=== PATIENT | male | born 1970 | race Two or more races ===

== ENCOUNTER 2017-09-13 13:57 | Inpatient (IN) | payer OTHER ==
--- NOTE | 2017-09-13 13:33 | HP ---
CIWA Score - CIWA Score Nausea/Vomitin-Mild Nausea/No Vomiting Muscle Tremors: 4-Moderate,w/Arms Extend Anxiety: 4-Mod. Anxious/Guarded Agitation: 1-Slight > Activity Paroxysmal Sweats: 1-Minimal Palms Moist Orientation: 1-Uncertain about Date Tacttile Disturbances: 1-Very Mild Itch/Numbness Auditory Disturbances: 1-Very Mild Visual Disturbances: 1-Very Mild Sensitivity Headache: 1-Very Mild CIWA-Ar Total Score: 16 Admission ROS BHS - HPI Chief Complaint: I want to get clean, I can't afford it anymore, I want my life back Allergies/Adverse Reactions: Allergies Allergy/AdvReac Type Severity Reaction Status Date / Time No Known Allergies Allergy Verified 09/13/17 14:12 History of Present Illness: 47 yo gentleman here for detox from alcohol and alprazolam. Patient is also on [facility] methadone program in the [place] ([phone]) - was dosed today but lost take home bottle for tomorrow on the bus coming here. Denies seizures but does have black outs. Last time here or any detox was August 2015. Exam Limitations: Clinical Condition - Ebola screening Have you traveled outside of the country in the last 21 days: No Have you had contact with anyone from an Ebola affected area: No Have you been sick,other than usual withdrawal symptoms: No Do you have a fever: No - Review of Systems Constitutional: Loss of Appetite, Changes in sleep, Weakness EENT: reports: Blurred Vision, Nose Congestion Respiratory: reports: No Symptoms reported GI: reports: Nausea, Poor Appetite : reports: Frequency Musculoskeletal: reports: Back Pain, Muscle Pain Integumentary: reports: No Symptoms Reported Neuro: reports: Headache Endocrine: reports: No Symptoms Reported Hematology: reports: No Symptoms Reported Psychiatric: reports: Judgement Intact, Mood/Affect Appropiate Other Systems: Reviewed and Negative Patient History - Patient Medical History Hx Anemia: No Hx Asthma: No Hx Chronic Obstructive Pulmonary Disease (COPD): No Hx Cancer: No Hx Cardiac Disorders: No Hx Congestive Heart Failure: No Hx Hypertension: No Hx Hypercholesterolemia: No Hx Pacemaker: No HX Cerebrovascular Accident: No Hx Seizures: No Hx Dementia: No Hx Diabetes: No Hx Gastrointestinal Disorders: No Hx Liver Disease: No Hx Genitourinary Disorders: No Hx Sexually Transmitted Disorders: No Hx Renal Disease (ESRD): No Hx Thyroid Disease: No Hx Human Immunodeficiency Virus (HIV): No Hx Hepatitis C: Yes (diagnosed last yr 2012 - not treated) Hx Depression: No Hx Suicide Attempt: Yes (18 years ago) Hx Bipolar Disorder: No Hx Schizophrenia: Yes (on meds) - Patient Surgical History Past Surgical History: No Hx Neurologic Surgery: No Hx Cataract Extraction: No Hx Cardiac Surgery: No Hx Lung Surgery: No Hx Breast Surgery: No Hx Breast Biopsy: No Hx Abdominal Surgery: No Hx Appendectomy: No Hx Cholecystectomy: No Hx Genitourinary Surgery: No Hx Section: No Hx Orthopedic Surgery: No Other Surgical History: partial amputation left 2nd toe by great toe Anesthesia Reaction: No - PPD History Previous Implant?: Yes Documented Results: Negative w/proof Date: 08/02/15 Results: 0 mm PPD to be Administered?: Yes - Reproductive History Patient is a Female of Child Bearing Age (11 -55 yrs old): No - Smoking Cessation Smoking history: Current every day smoker Have you smoked in the past 12 months: Yes Aproximately how many cigarettes per day: 20 Cigars Per Day: 0 Hx Chewing Tobacco Use: No Initiated information on smoking cessation: Yes 'Breaking Loose' booklet given: 09/13/17 - Substance & Tx. History Hx Alcohol Use: Yes Hx Substance Use: Yes Substance Use Type: Alcohol, Cocaine, Heroin, Marijuana, Tranquilizers Hx Substance Use Treatment: Yes (detox, rehab, methadone) - Substances Abused Alcohol Route: Oral Frequency: Daily Amount used: 2 pints liquor Age of first use: 12 Date of Last Use: 09/12/17 Alprazolam (Xanax) Route: Oral Frequency: Daily Amount used: 5mg Age of first use: 16 Date of Last Use: 09/12/17 Heroin Route: Injection Frequency: 1-2 times per week Amount used: 2 bags Age of first use: 12 Date of Last Use: 09/10/17 Marijuana/Hashish Route: Smoking Frequency: 1-2 times per week Amount used: 1 joint Age of first use: 12 Date of Last Use: 09/08/17 Cocaine Route: Injection Frequency: Daily Amount used: $70 Age of first use: 16 Date of Last Use: 09/12/17 Family Disease History - Family Disease History Family Disease History: Other: Father ( - heroin), Mother ( after operation ), Brother (1 brother - healthy), Sister (3 sisters - healthy) Admission Physical Exam [facility] - Vital Signs Vital Signs: 115/72 P 64 R 18 T 97.7 - Physical General Appearance: Yes: Nourished, Appropriately Dressed, Mild Distress, Thin HEENTM: Yes: Hearing grossly Normal, Normal ENT Inspection, Normocephalic, Normal Voice, Pharynx Normal, Muffled/Hoarse Voice Respiratory: Yes: Normal Breath Sounds, No Respiratory Distress Neck: Yes: No masses,lesions,Nodules Breast: Yes: Breast Exam Deferred Cardiology: Yes: Regular Rhythm, Regular Rate Abdominal: Yes: Flat Genitourinary: Yes: Dysuria Back: Yes: Normal Inspection Musculoskeletal: Yes: full range of Motion, Gait Steady Extremities: Yes: Normal Range of Motion Neurological: Yes: Alert, Normal Mood/Affect, Normal Response Integumentary: Yes: Normal Color, Warm, Track Álvarez (left arm, no erythema) - Diagnostic (1) Alcohol dependence Current Visit: Yes Status: Chronic (2) Sedative, hypnotic or anxiolytic dependence with withdrawal, uncomplicated Current Visit: Yes Status: Chronic (3) Cannabis abuse Current Visit: Yes Status: Chronic (4) Cocaine dependence Current Visit: Yes Status: Chronic Qualifiers: Substance use status: uncomplicated Qualified Code(s): F14.20 - Cocaine dependence, uncomplicated (5) Hepatitis C Current Visit: No Status: Chronic Qualifiers: Viral hepatitis chronicity: chronic Hepatic coma status: without hepatic coma Qualified Code(s): B18.2 - Chronic viral hepatitis C (6) Nicotine dependence Current Visit: No Status: Chronic Qualifiers: Nicotine product type: cigarettes Substance use status: unspecified nicotine-induced disorder Qualified Code(s): F17.219 - Nicotine dependence, cigarettes, with unspecified nicotine-induced disorders (7) Opioid dependence Current Visit: No Status: Chronic Qualifiers: Substance use status: uncomplicated Qualified Code(s): F11.20 - Opioid dependence, uncomplicated (8) Methadone maintenance therapy patient Current Visit: No Status: Acute Comment: [facility] [address] [place], [place] [address] [phone] - states 120mg, dosed today Cleared for Admission S - Detox or Rehab S Level of Care: Medically Managed Detox Regimen/Protocol: Librium BHS Breath Alcohol Content Breath Alcohol Content: 0
[2017-09-13 14:03] VITALS: BMI 22.6
[2017-09-13] MEDS ORDERED: MAG HYDROX/AL HYDROX/SIMETH 30 ML UNIT-DOSE CUP PO PRN (14:20)
[2017-09-13] MEDS ORDERED: chlordiazePOXIDE HCL 25 MG CAPSULE PO PRN (14:20)
[2017-09-13] MEDS ORDERED: guaiFENesin/D-METHORPHAN HB 10 ML UNIT-DOSE CUPS PO PRN (14:20)
[2017-09-13] MEDS ORDERED: MAGNESIUM HYDROX 2400MG/30ML ORAL SUSPENSION 30 ML CUP PO PRN (14:20)
[2017-09-13] MEDS ORDERED: ACETAMINOPHEN 325 MG TABLET (FP) PO PRN (14:20)
[2017-09-13] MEDS ORDERED: LOPERAMIDE HCL 2 MG CAPSULE PO PRN (14:20)
[2017-09-13] MEDS ORDERED: MAGNESIUM CITRATE 300 ML BOTTLE PO PRN (14:20)
[2017-09-13] MEDS ORDERED: P-EPHED 60MG/TRIPROLIDI 2.5MG TABLET PO PRN (14:20)
[2017-09-13] MEDS ORDERED: MENTHOL/PHENOL 1 EACH UD MM PRN (14:20)
[2017-09-13] MEDS ORDERED: hydrOXYzine PAMOATE 25 MG CAPSULE (FP) PO PRN (14:20)
[2017-09-13] MEDS ORDERED: chlordiazePOXIDE HCL 25 MG CAPSULE PO ONE (16:00)
[2017-09-13] MEDS: NICOTINE 21 MG/24 HOURS TOPICAL PATCH TD SCH (17:41)
[2017-09-13] MEDS: chlordiazePOXIDE HCL 25 MG CAPSULE PO SCH ×2 (18:06→23:22)
[2017-09-13] MEDS: THIAMINE HCL 100 MG TABLET (FP) PO SCH (23:22)
[2017-09-14 00:24] LABS: URINE APPEARANCE CLEAR; URINE BILIRUBIN NEGATIVE (NEGATIVE); URINE BLOOD NEGATIVE (NEGATIVE); URINE COLOR LTYELLOW; URINE GLUCOSE (UA) NEGATIVE (NEGATIVE); URINE KETONE NEGATIVE (NEGATIVE); URINE LEUK ESTERASE NEGATIVE (NEGATIVE); URINE NITRITE NEGATIVE (NEGATIVE); URINE PROTEIN NEGATIVE (NEGATIVE); URINE UROBILINOGEN NEGATIVE mg/dL (0.2-1.0)
[2017-09-14] MEDS: chlordiazePOXIDE HCL 25 MG CAPSULE PO SCH ×4 (06:00→23:03)
[2017-09-14 10:18] LABS: ALBUMIN 3.1 g/dl (3.4-5.0); ALK PHOS 109 U/L (45-117); ANION GAP 8 (8-16); BILIRUBIN,TOTAL 0.7 mg/dL (0.2-1.0); CALCIUM 8.2 mg/dL (8.5-10.1); CO2 28 mmol/L (21-32); CREATININE 0.7 mg/dL (0.7-1.3); GLUCOSE,RANDOM 96 mg/dL (74-106); SGOT/AST 29 U/L (15-37); SGPT/ALT 43 U/L (12-78); TOT PROT 6.8 g/dl (6.4-8.2)
[2017-09-14 10:20] LABS: MCH 30.9 pg (25.7-33.7); MCHC 33.4 g/dl (32.0-35.9); MEAN CELL VOLUME 92.4 fl (80-96); MEAN PLT VOLUME 8.9 fl (7.5-11.1); PLATELET COUNT 179 K/MM3 (134-434); RDW 13.7 % (11.9-15.9)
[2017-09-14] MEDS: PRENATAL VITAMINS W/ FOLIC ACID TABLET (FP) PO SCH (11:04)
[2017-09-14] MEDS: NICOTINE 21 MG/24 HOURS TOPICAL PATCH TD SCH (11:10)
--- NOTE | 2017-09-14 12:46 | PN ---
[facility] CIWA - CIWA Score Nausea/Vomitin-No Nausea/No Vomiting Muscle Tremors: 3 Anxiety: 3 Agitation: 3 Paroxysmal Sweats: 1-Minimal Palms Moist Orientation: 0-Oriented Tacttile Disturbances: 0-None Auditory Disturbances: 0-None Visual Disturbances: 0-None Headache: 0-None Present CIWA-Ar Total Score: 10 S Progress Note (SOAP) Subjective: tremor anxiety agitation Objective: 09/14/17 12:47 Vital Signs Temperature 97 F L 09/14/17 10:32 Pulse Rate 72 09/14/17 10:32 Respiratory Rate 18 09/14/17 10:32 Blood Pressure 125/88 09/14/17 10:32 O2 Sat by Pulse Oximetry (%) Laboratory Last Values WBC 9.0 K/mm3 (4.0-10.0) 09/14/17 08:00 RBC 4.06 M/mm3 (4.00-5.60) 09/14/17 08:00 Hgb 12.5 GM/dL (11.7-16.9) 09/14/17 08:00 Hct 37.5 % (35.4-49) 09/14/17 08:00 MCV 92.4 fl (80-96) 09/14/17 08:00 MCH 30.9 pg (25.7-33.7) 09/14/17 08:00 MCHC 33.4 g/dl (32.0-35.9) 09/14/17 08:00 RDW 13.7 % (11.9-15.9) 09/14/17 08:00 Plt Count 179 K/MM3 (134-434) D 09/14/17 08:00 MPV 8.9 fl (7.5-11.1) 09/14/17 08:00 Sodium 141 mmol/L (136-145) 09/14/17 08:00 Potassium 3.6 mmol/L (3.5-5.1) D 09/14/17 08:00 Chloride 105 mmol/L (98-107) 09/14/17 08:00 Carbon Dioxide 28 mmol/L (21-32) 09/14/17 08:00 Anion Gap 8 (8-16) 09/14/17 08:00 BUN 7 mg/dL (7-18) D 09/14/17 08:00 Creatinine 0.7 mg/dL (0.7-1.3) 09/14/17 08:00 Creat Clearance w eGFR > 60 (>60) 09/14/17 08:00 Random Glucose 96 mg/dL (74-106) 09/14/17 08:00 Calcium 8.2 mg/dL (8.5-10.1) L 09/14/17 08:00 Total Bilirubin 0.7 mg/dL (0.2-1.0) D 09/14/17 08:00 AST 29 U/L (15-37) D 09/14/17 08:00 ALT 43 U/L (12-78) D 09/14/17 08:00 Alkaline Phosphatase 109 U/L (45-117) D 09/14/17 08:00 Total Protein 6.8 g/dl (6.4-8.2) 09/14/17 08:00 Albumin 3.1 g/dl (3.4-5.0) L 09/14/17 08:00 Urine Color Ltyellow 09/13/17 14:30 Urine Appearance Clear 09/13/17 14:30 Urine pH 6.0 (5.0-8.0) 09/13/17 14:30 Ur Specific [place] 1.004 (1.001-1.035) 09/13/17 14:30 Urine Protein Negative (NEGATIVE) 09/13/17 14:30 Urine Glucose (UA) Negative (NEGATIVE) 09/13/17 14:30 Urine Ketones Negative (NEGATIVE) 09/13/17 14:30 Urine Blood Negative (NEGATIVE) 09/13/17 14:30 Urine Nitrite Negative (NEGATIVE) 09/13/17 14:30 Urine Bilirubin Negative (NEGATIVE) 09/13/17 14:30 Urine Urobilinogen Negative mg/dL (0.2-1.0) 09/13/17 14:30 RPR Titer Nonreactive (NONREACTIVE) 09/14/17 08:00 lab noted Assessment: 09/14/17 12:47 withdrawal sx Plan: continue detox
[2017-09-14 13:07] LABS: URINE LEUK ESTERASE NEGATIVE (NEGATIVE)
--- NOTE | 2017-09-14 14:01 | CONSULT ---
[facility] Psychiatric Consult - Data Date of interview: 09/14/17 Admission source: Self-referred Identifying data: Mr Mendez is a 47 years old single male, unemployed on SSI, homeless Substance Abuse History: Reports history of alcohol, cocaine and xanax use. Refer to addiction counselor's note for further information Medical History: Significant for history of Hep C since 2012 and a history of orthosurgery for partial amputation of second toe of left foot. Smokes cigarettes 1ppd Psychiatric History: Reports history of Paranoid Schizophrenia since age 9 and has had multiple previous psychiatric hospitalizations at [facility] and most recently [facility] [place] 6 months ago for . Reports non- compliance with psychiatric outpatient services but get Risperdal 2 mg po BID, Zoloft 100 mg po daily and Seroquel 50 mg po HS prescribed by his primary care physician. At present, reports not feeling well since he lost his methadone. Also sleeps poorly Physical/Sexual Abuse/Trauma History: Denies history of sexual, physical, verbal abuse. Mental Status Exam - Mental Status Exam Alert and Oriented to: Time, Place, Person Cognitive Function: Fair Patient Appearance: Well Groomed Mood: Depressed, Anxious Affect: Appropriate Patient Behavior: Cooperative Speech Pattern: Clear Voice Loudness: Normal Thought Process: Intact, Goal Oriented Thought Disorder: Not Present Hallucinations: Denies Suicidal Ideation: Denies Homicidal Ideation: Denies Insight/Judgement: Poor Sleep: Poorly Appetite: Good Muscle strength/Tone: Normal Gait/Station: Normal Psychiatric Findings - Problem List ([place] 1, 2,3) (1) Paranoid schizophrenia Current Visit: No Status: Chronic (2) Substance induced mood disorder Current Visit: Yes Status: Acute (3) Substance-induced sleep disorder Current Visit: Yes Status: Acute (4) Alcohol dependence with uncomplicated withdrawal Current Visit: Yes Status: Acute (5) Cocaine dependence Current Visit: Yes Status: Chronic Qualifiers: Substance use status: uncomplicated Qualified Code(s): F14.20 - Cocaine dependence, uncomplicated (6) Sedative, hypnotic or anxiolytic dependence with withdrawal, uncomplicated Current Visit: Yes Status: Chronic (7) Opioid dependence on agonist therapy Current Visit: Yes Status: Chronic (8) Nicotine dependence Current Visit: No Status: Chronic Qualifiers: Nicotine product type: cigarettes Substance use status: unspecified nicotine-induced disorder Qualified Code(s): F17.219 - Nicotine dependence, cigarettes, with unspecified nicotine-induced disorders (9) Hepatitis C Current Visit: No Status: Chronic Qualifiers: Viral hepatitis chronicity: chronic Hepatic coma status: without hepatic coma Qualified Code(s): B18.2 - Chronic viral hepatitis C - Initial Treatment Plan Initial Treatment Plan: 1) Continue Zoloft 100 mg po daily, Risperdal 2 mg po BID and Seroquel 50 mg po HS. 2) Continue inpatient detoxification
--- NOTE | 2017-09-14 16:44 | CONSULT ---
S Psychiatric Consult - Data Date of interview: 09/14/17 Admission source: Self-referred
[2017-09-14] MEDS: SERTRALINE HCL 50 MG TABLET (FP) PO SCH (18:34)
[2017-09-14] MEDS: risperiDONE 2 MG TABLET PO SCH (23:02)
[2017-09-14] MEDS: THIAMINE HCL 100 MG TABLET (FP) PO SCH (23:02)
[2017-09-14] MEDS: QUEtiapine FUMARATE 50 MG TABLET PO SCH (23:03)
[2017-09-14] MEDS: IBUPROFEN 400 MG TABLET (FP) PO PRN (23:06)
[2017-09-15] MEDS: chlordiazePOXIDE HCL 25 MG CAPSULE PO SCH ×2 (06:46→11:02)
[2017-09-15] MEDS ORDERED: METHADONE HCL 40 MG DISPERSABLE TABLET PO ONE (09:18)
[2017-09-15] MEDS: PRENATAL VITAMINS W/ FOLIC ACID TABLET (FP) PO SCH (11:01)
[2017-09-15] MEDS: risperiDONE 2 MG TABLET PO SCH ×2 (11:01→22:32)
[2017-09-15] MEDS: SERTRALINE HCL 50 MG TABLET (FP) PO SCH (11:01)
[2017-09-15] MEDS: NICOTINE 21 MG/24 HOURS TOPICAL PATCH TD SCH (11:02)
--- NOTE | 2017-09-15 11:59 | PN ---
S CIWA - CIWA Score Nausea/Vomitin-No Nausea/No Vomiting Muscle Tremors: 4-Moderate,w/Arms Extend Anxiety: 3 Agitation: 3 Paroxysmal Sweats: 3 Orientation: 0-Oriented Tacttile Disturbances: 0-None Auditory Disturbances: 0-None Visual Disturbances: 0-None Headache: 0-None Present CIWA-Ar Total Score: 13 S Progress Note (SOAP) Subjective: agitation anxiety sweats shakes interrupted sleep Objective: 09/15/17 11:59 Vital Signs Temperature 98.2 F 09/15/17 10:00 Pulse Rate 92 H 09/15/17 10:00 Respiratory Rate 20 09/15/17 10:00 Blood Pressure 105/69 09/15/17 10:00 O2 Sat by Pulse Oximetry (%) Laboratory Tests 09/13/17 09/14/17 09/14/17 14:30 08:00 08:00 WBC 9.0 RBC 4.06 Hgb 12.5 Hct 37.5 MCV 92.4 MCH 30.9 MCHC 33.4 RDW 13.7 Plt Count 179 D MPV 8.9 Sodium 141 Potassium 3.6 D Chloride 105 Carbon Dioxide 28 Anion Gap 8 BUN 7 D Creatinine 0.7 Creat Clearance w eGFR > 60 Random Glucose 96 Calcium 8.2 L Total Bilirubin 0.7 D AST 29 D ALT 43 D Alkaline Phosphatase 109 D Total Protein 6.8 Albumin 3.1 L Urine Color Ltyellow Urine Appearance Clear Urine pH 6.0 Ur Specific [place] 1.004 Urine Protein Negative Urine Glucose (UA) Negative Urine Ketones Negative Urine Blood Negative Urine Nitrite Negative Urine Bilirubin Negative Urine Urobilinogen Negative Ur Leukocyte Esterase Negative RPR Titer 09/14/17 08:00 WBC RBC Hgb Hct MCV MCH MCHC RDW Plt Count MPV Sodium Potassium Chloride Carbon Dioxide Anion Gap BUN Creatinine Creat Clearance w eGFR Random Glucose Calcium Total Bilirubin AST ALT Alkaline Phosphatase Total Protein Albumin Urine Color Urine Appearance Urine pH Ur Specific [place] Urine Protein Urine Glucose (UA) Urine Ketones Urine Blood Urine Nitrite Urine Bilirubin Urine Urobilinogen Ur Leukocyte Esterase RPR Titer Nonreactive aaox3 ambulating no acute distress Assessment: 09/15/17 12:00 withdrawal sx Plan: continue detox increase fluids
--- NOTE | 2017-09-15 15:15 | EKG ---
Test Reason : Blood Pressure : / mmHG Vent. Rate : 054 BPM Atrial Rate : 054 BPM P-R Int : 158 ms QRS Dur : 096 ms QT Int : 432 ms P-R-T Axes : 026 043 036 degrees QTc Int : 409 ms SINUS BRADYCARDIA OTHERWISE NORMAL ECG NO PREVIOUS ECGS AVAILABLE Confirmed by ORALIA DEJESUS MD ([id number]) on 09/15/2017 3:15:24 PM Referred By: Confirmed By:ORALIA DEJESUS MD
[2017-09-15] MEDS: chlordiazePOXIDE 5 MG CAPSULE PO SCH ×2 (17:35→22:31)
[2017-09-15] MEDS: QUEtiapine FUMARATE 50 MG TABLET PO SCH (22:32)
[2017-09-15] MEDS: THIAMINE HCL 100 MG TABLET (FP) PO SCH (22:32)
[2017-09-16] MEDS: chlordiazePOXIDE 5 MG CAPSULE PO SCH ×2 (06:14→11:09)
[2017-09-16] MEDS: METHADONE HCL 40 MG DISPERSABLE TABLET PO SCH (06:15)
[2017-09-16] MEDS: SERTRALINE HCL 50 MG TABLET (FP) PO SCH (11:08)
[2017-09-16] MEDS: NICOTINE 21 MG/24 HOURS TOPICAL PATCH TD SCH (11:08)
[2017-09-16] MEDS: risperiDONE 2 MG TABLET PO SCH ×2 (11:09→22:23)
[2017-09-16] MEDS: PRENATAL VITAMINS W/ FOLIC ACID TABLET (FP) PO SCH (11:09)
--- NOTE | 2017-09-16 11:57 | PN ---
BHS Progress Note (SOAP) Subjective: open cut/blister to amputee toe interrupted sleep anxiety Objective: 09/16/17 11:56 Vital Signs Temperature 97.3 F L 09/16/17 09:56 Pulse Rate 93 H 09/16/17 09:56 Respiratory Rate 18 09/16/17 09:56 Blood Pressure 117/64 09/16/17 09:56 O2 Sat by Pulse Oximetry (%) aaox3 ambulating no acute distress cracked/dry foot and amputee toe noted Assessment: 09/16/17 11:57 withdrawal sx Plan: continue detox increase fluids bacitracin oint tinactin cream d/c in am
[2017-09-16] MEDS ORDERED: BACITRACIN 0.9 GM PACKET TP SCH (12:00)
[2017-09-16] MEDS: TOLNAFTATE 1% CREAM 15 GM TUBE TP SCH ×2 (15:32→22:23)
[2017-09-16] MEDS: IBUPROFEN 400 MG TABLET (FP) PO PRN (15:40)
[2017-09-16] MEDS: chlordiazePOXIDE HCL 10 MG CAPSULE PO SCH ×2 (17:44→22:23)
[2017-09-16] MEDS: THIAMINE HCL 100 MG TABLET (FP) PO SCH (22:23)
[2017-09-16] MEDS: QUEtiapine FUMARATE 50 MG TABLET PO SCH (22:23)
[2017-09-17] MEDS: METHADONE HCL 40 MG DISPERSABLE TABLET PO SCH (06:28)
[2017-09-17] MEDS: chlordiazePOXIDE HCL 10 MG CAPSULE PO SCH (06:28)
--- NOTE | 2017-09-17 08:55 | DS ---
[facility] Detox Discharge Summary Admission Date: 09/13/17 Discharge Date: 09/17/17 - History Present History: Alcohol Dependence, Cannabis Dependence, Cocaine Dependence, MMTP - Physical Exam Results Vital Signs: Vital Signs Temperature 96.6 F L 09/17/17 07:06 Pulse Rate 79 09/17/17 07:06 Respiratory Rate 20 09/17/17 07:06 Blood Pressure 105/71 09/17/17 07:06 O2 Sat by Pulse Oximetry (%) - Treatment Hospital Course: Detox Protocol Followed, Detoxed Safely, Responded well, Discharged Condition Good - Medication Discharge Medications: Ambulatory Orders Risperidone [Risperdal -] 2 mg PO BID #60 tablet 03/22/15 Sertraline HCl [Zoloft -] 100 mg PO DAILY #30 tablet 03/22/15 Sertraline HCl [Zoloft -] 100 mg PO DAILY #30 tablet 08/30/15 Trazodone HCl [Desyrel -] 50 mg PO HS #30 tablet 08/30/15 - Diagnosis (1) Alcohol dependence Current Visit: Yes Status: Chronic Qualifiers: Substance use status: uncomplicated Qualified Code(s): F10.20 - Alcohol dependence, uncomplicated (2) Cannabis abuse Current Visit: Yes Status: Chronic (3) Cocaine dependence Current Visit: Yes Status: Chronic Qualifiers: Substance use status: uncomplicated Qualified Code(s): F14.20 - Cocaine dependence, uncomplicated (4) Opioid dependence on agonist therapy Current Visit: Yes Status: Chronic (5) Hepatitis C Current Visit: No Status: Chronic Qualifiers: Viral hepatitis chronicity: chronic Hepatic coma status: without hepatic coma Qualified Code(s): B18.2 - Chronic viral hepatitis C (6) Nicotine dependence Current Visit: No Status: Chronic Qualifiers: Nicotine product type: cigarettes Substance use status: unspecified nicotine-induced disorder Qualified Code(s): F17.219 - Nicotine dependence, cigarettes, with unspecified nicotine-induced disorders (7) Alcohol dependence with uncomplicated withdrawal Current Visit: Yes Status: Acute (8) Sedative, hypnotic or anxiolytic dependence with withdrawal, uncomplicated Current Visit: Yes Status: Chronic
[2017-09-17] MEDS: SERTRALINE HCL 50 MG TABLET (FP) PO SCH (09:50)
[2017-09-17] MEDS: risperiDONE 2 MG TABLET PO SCH (09:50)
[2017-09-17] MEDS: PRENATAL VITAMINS W/ FOLIC ACID TABLET (FP) PO SCH (09:50)
[2017-09-17 09:57] VITALS: BP 129/72; PULSE 74; TEMP 97.7
== END 2017-09-17 10:10 | disposition home or self-care (01) | DRG 773 ==
LOC: YASAS 13:57 → Y6N 15:40
PROVIDERS: ADMIT Internal Medicine; ATTEND Internal Medicine
PROC: HZ2ZZZZ Detoxification Services for Substance Abuse Treatment (ICD-10-PCS; principal; 2017-09-13)
DX: F11.20 Opioid dependence, uncomplicated (principal); F13.230 Sedative, hypnotic or anxiolytic dependence with withdrawal, uncomplicated; F10.230 Alcohol dependence with withdrawal, uncomplicated; F14.20 Cocaine dependence, uncomplicated; F12.10 Cannabis abuse, uncomplicated; F17.210 Nicotine dependence, cigarettes, uncomplicated; F19.24 Other psychoactive substance dependence with psychoactive substance-induced mood disorder; F19.282 Other psychoactive substance dependence with psychoactive substance-induced sleep disorder; F20.0 Paranoid schizophrenia; B18.2 Chronic viral hepatitis C; Z91.5 Personal history of self-harm
CPT/HCPCS: 36415; 80053; 81003; 85027; 86593; 93005; 93010

== ENCOUNTER 2018-10-12 10:53 | Inpatient (IN) | payer OTHER ==
[2018-10-12 11:05] VITALS: BMI 28.6
--- NOTE | 2018-10-12 13:57 | HP ---
COWS - Scale Resting Pulse: 1= [place] 81-100 Sweatin= Chills/Flushing Restless Observation: 3= Extraneous Movement Pupil Size: 1= Pupils >than Normal Bone or Joint Aches: 2= Severe Diffuse Aches Runny Nose/ Eye Tearin= Runny Nose/Eyes GI Upset > 30mins: 2= Nausea/Diarrhea Tremor Observation: 2= Slight Tremor Visible Yawning Observation: 2= >3x During Session Anxiety or Irritability: 2=Irritable/Anxious Goose Flesh Skin: 0=Smooth Skin COWS Score: 18 CIWA Score Nausea/Vomitin Muscle Tremors: 2 Anxiety: 2 Agitation: 2 Paroxysmal Sweats: 1-Minimal Palms Moist Orientation: 0-Oriented Tacttile Disturbances: 1-Very Mild Itch/Numbness Auditory Disturbances: 1-Very Mild Visual Disturbances: 0-None Headache: 2-Mild CIWA-Ar Total Score: 13 - Admission Criteria [facility] Guidelines: Admission for Medically Managed Detox: Requires at least one of the followin. CIWA greater than 12 2. Seizures within the past 24 hours 3. Delirium tremens within the past 24 hours 4. Hallucinations within the past 24 hours 5. Acute intervention needed for co occurring medical disorder 6. Acute intervention needed for co occurring psychiatric disorder 7. Severe withdrawal that cannot be handled at a lower level of care (continued vomiting, continued diarrhea, abnormal vital signs) requiring intravenous medication and/or fluids 8. Patient presents the following: CIWA greater than 12 Admission Criteria Met: Admission criteria met Admission ROS S - [facility] Chief Complaint: i need help to stop using heroin,alcohol,xanax,cocaine Allergies/Adverse Reactions: Allergies Allergy/AdvReac Type Severity Reaction Status Date / Time No Known Allergies Allergy Verified 10/12/18 12:38 History of Present Illness: this 48 years old male with heroin,alcohol,xanax,cocaine dependence,requested detox,withdrawal symptom,last detox [facility] 09/13/17 to 09/17/17 hypertension no med hepatitis c treated nicotine dependence schizophrenia longest period of sobriety 2 years plan for rehab after detox Exam Limitations: No Limitations - Ebola screening Have you traveled outside of the country in the last 21 days: No Have you had contact with anyone from an Ebola affected area: No Have you been sick,other than usual withdrawal symptoms: No Do you have a fever: No - Review of Systems Constitutional: Chills, Loss of Appetite, Malaise, Night Sweats, Changes in sleep, Weakness, Unintentional Wgt. Loss EENT: reports: Tearing, Nose Congestion Respiratory: reports: No Symptoms reported Cardiac: reports: No Symptoms Reported GI: reports: Diarrhea, Nausea, Vomiting, Abdominal cramping : reports: No Symptoms Reported Musculoskeletal: reports: Back Pain, Joint Pain, Muscle Pain, Joint Stiffness Integumentary: reports: Dryness Neuro: reports: Headache, Tremors Endocrine: reports: No Symptoms Reported Hematology: reports: No Symptoms Reported Psychiatric: reports: No Sypmtoms Reported, Judgement Intact, Mood/Affect Appropiate, Orientated x3, other (schizophrenia) Other Systems: Reviewed and Negative Patient History - Patient Medical History Hx Anemia: No Hx Asthma: No Hx Chronic Obstructive Pulmonary Disease (COPD): No Hx Cancer: No Hx Cardiac Disorders: No Hx Congestive Heart Failure: No Hx Hypertension: No Hx Hypercholesterolemia: No Hx Pacemaker: No HX Cerebrovascular Accident: No Hx Seizures: No Hx Dementia: No Hx Diabetes: No Hx Gastrointestinal Disorders: No Hx Liver Disease: No Hx Genitourinary Disorders: No Hx Sexually Transmitted Disorders: No Hx Renal Disease (ESRD): No Hx Thyroid Disease: No Hx Human Immunodeficiency Virus (HIV): No Hx Hepatitis C: Yes (diagnosed last yr 2012 -reated) Hx Depression: No Hx Suicide Attempt: Yes (18 years ago) Hx Bipolar Disorder: No Hx Schizophrenia: Yes (on meds) Other Medical History: no suicidal,no homicidal - Patient Surgical History Past Surgical History: No Hx Neurologic Surgery: No Hx Cataract Extraction: No Hx Cardiac Surgery: No Hx Lung Surgery: No Hx Breast Surgery: No Hx Breast Biopsy: No Hx Abdominal Surgery: No Hx Appendectomy: No Hx Cholecystectomy: No Hx Genitourinary Surgery: No Hx Section: No Hx Orthopedic Surgery: No Other Surgical History: partial amputation left 2nd toe by great toe Anesthesia Reaction: No - PPD History Previous Implant?: Yes Documented Results: Negative w/o proof Date: 09/15/17 Results: 0 mm PPD to be Administered?: Yes - Smoking Cessation Smoking history: Current every day smoker Have you smoked in the past 12 months: Yes Aproximately how many cigarettes per day: 20 Cigars Per Day: 0 Hx Chewing Tobacco Use: No Initiated information on smoking cessation: Yes 'Breaking Loose' booklet given: 10/12/18 - Substance & Tx. History Hx Alcohol Use: Yes Hx Substance Use: Yes Substance Use Type: Alcohol, Heroin, Tranquilizers Hx Substance Use Treatment: Yes ([facility] 09/13/17 to 09/17/17) - Substances Abused Alcohol Route: Oral Frequency: Daily Amount used: 16 of beer, 1 pint of vodka Age of first use: 16 Date of Last Use: 10/11/18 Heroin Route: Injection Frequency: Daily Amount used: 8-9 bags Age of first use: 16 Date of Last Use: 10/11/18 Xanax Route: Oral Frequency: 3-6 times per week Amount used: 2 2mg tables Age of first use: 37 Date of Last Use: 10/10/18 Family Disease History - Family Disease History Family Disease History: Other: Father ( - heroin), Mother ( after operation ), Brother (1 brother - healthy), Sister (3 sisters - healthy) Admission Physical Exam [facility] - Vital Signs Vital Signs: Vital Signs - 24 hr 10/12/18 11:02 Temperature 97.0 F L Pulse Rate 81 Respiratory 20 Rate Blood Pressure 126/78 - Physical General Appearance: Yes: Moderate Distress, Tremorous, Irritable, Sweating, Anxious HEENTM: Yes: Normal ENT Inspection, CODIE, Pharynx Normal Respiratory: Yes: Lungs Clear, Normal Breath Sounds, No Respiratory Distress Neck: Yes: Within Normal Limits, Supple, Trachea in good position Breast: Yes: Within Normal Limits Cardiology: Yes: Within Normal Limits, Regular Rhythm, Regular Rate, S1, S2 Abdominal: Yes: Within Normal Limits, Normal Bowel Sounds, Non Tender, Flat, Soft Genitourinary: Yes: Within Normal Limits Back: Yes: Muscle Spasm Musculoskeletal: Yes: full range of Motion, Back pain, Muscle Pain Extremities: Yes: Within Normal Limits, Tremors Neurological: Yes: Within Normal Limits, retail pos specialist II-XII NML intact, Fully Oriented, Alert, Motor Strength 5/5 Integumentary: Yes: Dry, Track Álvarez Lymphatic: Yes: Within Normal Limits - Diagnostic (1) Opioid dependence with withdrawal Current Visit: Yes Status: Acute (2) Alcohol dependence with uncomplicated withdrawal Current Visit: No Status: Acute (3) Cocaine dependence Current Visit: No Status: Chronic Qualifiers: Substance use status: uncomplicated Qualified Code(s): F14.20 - Cocaine dependence, uncomplicated (4) Uncomplicated sedative, hypnotic or anxiolytic withdrawal Current Visit: Yes Status: Acute (5) Nicotine dependence Current Visit: Yes Status: Acute (6) Weight loss Current Visit: Yes Status: Acute (7) IVDU (intravenous drug user) Current Visit: Yes Status: Acute (8) Paranoid schizophrenia Current Visit: No Status: Chronic Cleared for Admission S - Detox or Rehab [facility] Level of Care: Medically Managed Detox Regimen/Protocol: Methadone/Librium S Breath Alcohol Content Breath Alcohol Content: 0 Urine Drug Screen - Results Drug Screen Negative: No Urine Drug Screen Results: BRENDEN-Cocaine, OPI-Opiates, FEN-Fentanyl, BUP-Suboxone
[2018-10-12] MEDS ORDERED: MAG HYDROX/AL HYDROX/SIMETH 30 ML UNIT-DOSE CUP PO PRN (14:18)
[2018-10-12] MEDS ORDERED: MENTHOL/PHENOL 1 EACH UD MM PRN (14:18)
[2018-10-12] MEDS ORDERED: MAGNESIUM CITRATE 300 ML BOTTLE PO PRN (14:18)
[2018-10-12] MEDS ORDERED: LOPERAMIDE HCL 2 MG CAPSULE PO PRN (14:18)
[2018-10-12] MEDS ORDERED: guaiFENesin/D-METHORPHAN HB 10 ML UNIT-DOSE CUPS PO PRN (14:18)
[2018-10-12] MEDS ORDERED: P-EPHED 60MG/TRIPROLIDI 2.5MG TABLET PO PRN (14:18)
[2018-10-12] MEDS ORDERED: IBUPROFEN 400 MG TABLET (FP) PO PRN (14:18)
[2018-10-12] MEDS ORDERED: ACETAMINOPHEN 325 MG TABLET (FP) PO PRN (14:18)
[2018-10-12] MEDS ORDERED: MAGNESIUM HYDROX 2400MG/30ML ORAL SUSPENSION 30 ML CUP PO PRN (14:18)
[2018-10-12] MEDS ORDERED: chlordiazePOXIDE HCL 25 MG CAPSULE PO PRN (14:18)
[2018-10-12] MEDS ORDERED: METHADONE HCL 10 MG TABLET (FOR DETOX USE ONLY) PO ONE ×2 (15:45→23:00)
[2018-10-12] MEDS: chlordiazePOXIDE HCL 25 MG CAPSULE PO SCH ×2 (16:51→22:11)
[2018-10-12] MEDS: NICOTINE 21 MG/24 HOURS TOPICAL PATCH TD SCH (16:55)
[2018-10-12] MEDS ORDERED: MELATONIN 5 MG TABLETS PO PRN (22:00)
[2018-10-12] MEDS: THIAMINE HCL 100 MG TABLET (FP) PO SCH (22:11)
[2018-10-13] MEDS: chlordiazePOXIDE HCL 25 MG CAPSULE PO SCH ×4 (05:33→22:03)
[2018-10-13] MEDS ORDERED: METHADONE HCL 10 MG TABLET (FOR DETOX USE ONLY) PO SCH (10:00)
[2018-10-13 10:30] LABS: HEMATOCRIT 41.5 % (35.4-49); HEMOGLOBIN 13.4 GM/dL (11.7-16.9); MCH 28.6 pg (25.7-33.7); MCHC 32.3 g/dl (32.0-35.9); MEAN CELL VOLUME 88.7 fl (80-96); PLATELET COUNT 208 K/MM3 (134-434); RBC 4.68 M/mm3 (4.00-5.60); RDW 14.8 % (11.9-15.9); WHITE BLOOD COUNT 8.4 K/mm3 (4.0-10.0)
[2018-10-13 10:31] LABS: MEAN PLT VOLUME 10.1 fl (7.5-11.1)
[2018-10-13 10:47] LABS: ALBUMIN 3.6 g/dl (3.4-5.0); ALK PHOS 116 U/L (45-117); ANION GAP 8 MMOL/L (8-16); BILIRUBIN,TOTAL 0.4 mg/dL (0.2-1); BLOOD UREA NITROGEN 15 mg/dL (7-18); CALCIUM 8.5 mg/dL (8.5-10.1); CHLORIDE 106 mmol/L (98-107); CO2 25 mmol/L (21-32); CREATININE 0.9 mg/dL (0.55-1.3); GLUCOSE,RANDOM 129 mg/dL (74-106); POTASSIUM 4.3 mmol/L (3.5-5.1); SGOT/AST 53 U/L (15-37); SGPT/ALT 38 U/L (13-61); SODIUM 140 mmol/L (136-145); TOT PROT 7.4 g/dl (6.4-8.2)
[2018-10-13] MEDS: PRENATAL VITAMINS W/ FOLIC ACID TABLET (FP) PO SCH (10:57)
[2018-10-13] MEDS: NICOTINE 21 MG/24 HOURS TOPICAL PATCH TD SCH (11:05)
--- NOTE | 2018-10-13 11:05 | PN ---
[facility] CIWA - CIWA Score Nausea/Vomitin-Mild Nausea/No Vomiting Muscle Tremors: 3 Anxiety: 4-Mod. Anxious/Guarded Agitation: 3 Paroxysmal Sweats: 1-Minimal Palms Moist Orientation: 1-Uncertain about Date Tacttile Disturbances: 1-Very Mild Itch/Numbness Auditory Disturbances: 0-None Visual Disturbances: 0-None Headache: 1-Very Mild CIWA-Ar Total Score: 15 BHS COWS - Scale Resting Pulse: 0= [place] 80 or Below Sweatin= Chills/Flushing Restless Observation: 0= Sits Still Pupil Size: 0= Normal to Room Light Bone or Joint Aches: 2= Severe Diffuse Aches Runny Nose/ Eye Tearin= Nasal Congestion GI Upset > 30mins: 2= Nausea/Diarrhea Tremor Observation of Outstretched Hands: 2= Slight Tremor Visible Yawning Observation: 2= >3x During Session Anxiety or Irritability: 2=Irritable/Anxious Goose Flesh Skin: 0=Smooth Skin COWS Score: 12 S Progress Note (SOAP) Subjective: tremor sweat anxiety restlessness body aches joints pain headaches Objective: 10/13/18 11:04 Vital Signs Temperature 97.4 F L 10/13/18 09:36 Pulse Rate 66 10/13/18 09:36 Respiratory Rate 17 10/13/18 09:36 Blood Pressure 116/70 10/13/18 09:36 O2 Sat by Pulse Oximetry (%) Laboratory Last Values WBC 8.4 K/mm3 (4.0-10.0) 10/13/18 06:00 RBC 4.68 M/mm3 (4.00-5.60) 10/13/18 06:00 Hgb 13.4 GM/dL (11.7-16.9) 10/13/18 06:00 Hct 41.5 % (35.4-49) 10/13/18 06:00 MCV 88.7 fl (80-96) 10/13/18 06:00 MCH 28.6 pg (25.7-33.7) 10/13/18 06:00 MCHC 32.3 g/dl (32.0-35.9) 10/13/18 06:00 RDW 14.8 % (11.9-15.9) 10/13/18 06:00 Plt Count 208 K/MM3 (134-434) 10/13/18 06:00 MPV 10.1 fl (7.5-11.1) D 10/13/18 06:00 Sodium 140 mmol/L (136-145) 10/13/18 06:00 Potassium 4.3 mmol/L (3.5-5.1) 10/13/18 06:00 Chloride 106 mmol/L (98-107) 10/13/18 06:00 Carbon Dioxide 25 mmol/L (21-32) 10/13/18 06:00 Anion Gap 8 MMOL/L (8-16) 10/13/18 06:00 BUN 15 mg/dL (7-18) 10/13/18 06:00 Creatinine 0.9 mg/dL (0.55-1.3) 10/13/18 06:00 Creat Clearance w eGFR > 60 (>60) 10/13/18 06:00 Random Glucose 129 mg/dL (74-106) H 10/13/18 06:00 Calcium 8.5 mg/dL (8.5-10.1) 10/13/18 06:00 Total Bilirubin 0.4 mg/dL (0.2-1) 10/13/18 06:00 AST 53 U/L (15-37) H 10/13/18 06:00 ALT 38 U/L (13-61) 10/13/18 06:00 Alkaline Phosphatase 116 U/L (45-117) 10/13/18 06:00 Total Protein 7.4 g/dl (6.4-8.2) 10/13/18 06:00 Albumin 3.6 g/dl (3.4-5.0) 10/13/18 06:00 lab noted Assessment: 10/13/18 11:05 withdrawal sx Plan: continue detox
--- NOTE | 2018-10-13 14:23 | CONSULT ---
[facility] Psychiatric Consult - Data Date of interview: 10/13/18 Admission source: [facility] Identifying data: Readmission to [facility] for this 48 y/o male undergoing detoxification treatment on [address] (cocaine, heroin, alcohol, xanax) . Patient is single without dependents, homeles, unemployed and supported on SSI benefits. Substance Abuse History: Confirmed by the patient in this interview. Details in current [facility] report : Smoking history: Current every day smoker. Have you smoked in the past 12 months: Yes. Aproximately how many cigarettes per day: 20. Cigars Per Day: 0. Hx Chewing Tobacco Use: No. Initiated information on smoking cessation: Yes. 'Breaking Loose' booklet given: 10/12/18. - Substance & Tx. History. Hx Alcohol Use: Yes. Hx Substance Use: Yes. Substance Use Type : Alcohol, Heroin, Tranquilizers. Hx Substance Use Treatment: [facility] - Substances Abused. Alcohol. Route: Oral. Frequency: Daily. Amount used: 16 of beer, 1 pint of vodka. Age of first use: 16. Date of Last Use: 10/11/18. Heroin. Route: Injection. Frequency: Daily. Amount used: 8-9 bags. Age of first use: 16. Date of Last Use: 10/11/18. Xanax. Route: Oral. Frequency: 3-6 times per week. Amount used: 2 2mg tables. Age of first use: 37. Date of Last Use: 10/10/18 Medical History: Significant for history of Hepatitis C since 2012 and a history of orthosurgery (partial amputation of second toe of left foot). No known allergies. Psychiatric History: Diagnosed with Paranoid Schizophrenia. Onset of psychiatric illness : age 9. Patient endorses a history of multiple psychiatric hospitalizations ([facility], [facility], [facility]). Mr Mendez states that he has been prescribed (in [facility] ) the following medications : sertraline 100 mg/day + seroquel 300 mg/hs + risperdal 2 mg bid. Patient indicates that he was released on 09/16/18. No contact with psychiatrist for aftercare. He presents with a well established history of non-adherence to medications. Denies history of suicide attempts. Physical/Sexual Abuse/Trauma History: Patient denies. Additional Comment: Urine Drug Screen Results: BRENDEN-Cocaine, OPI-Opiates, FEN- Fentanyl, BUP-Suboxone. Noted. Mental Status Exam - Mental Status Exam Alert and Oriented to: Time, Place, Person Cognitive Function: Good Patient Appearance: Well Groomed Mood: Withdrawn, Anxious Affect: Mood Congruent, Constricted Patient Behavior: Fatigued, Cooperative Speech Pattern: Clear Voice Loudness: Normal Thought Process: Goal Oriented Thought Disorder: Not Present Hallucinations: Denies Suicidal Ideation: Denies Homicidal Ideation: Denies Insight/Judgement: Poor Sleep: Poorly, Difficulty falling asleep Appetite: Good Muscle strength/Tone: Normal Gait/Station: Normal Psychiatric Findings - Problem List ([place] 1, 2,3) (1) Alcohol dependence with uncomplicated withdrawal Current Visit: Yes Status: Acute (2) Opioid dependence with withdrawal Current Visit: Yes Status: Acute (3) Uncomplicated sedative, hypnotic or anxiolytic withdrawal Current Visit: Yes Status: Acute (4) Nicotine dependence Current Visit: Yes Status: Chronic (5) Cocaine dependence Current Visit: Yes Status: Chronic Qualifiers: Substance use status: uncomplicated Qualified Code(s): F14.20 - Cocaine dependence, uncomplicated (6) Substance induced mood disorder Current Visit: Yes Status: Chronic (7) Paranoid schizophrenia Current Visit: Yes Status: Chronic - Initial Treatment Plan Initial Treatment Plan: Psychoeducation. Sleep hygiene. Detoxification. Support. Motivational rounds. Medications resumed as : seroquel 100 mg po hs ( reduced but subject to titration) + zoloft 100 mg po daily + risperdal 1 mg po bid. Side effects/benefits of each drug are discussed with the patient (this includes risks of abnormal involuntary movements, dyskinesias, dystonias, galactorrhea, gynecomastia, sexual dysfunction, neuroleptic malignant syndrome, suicidal ideation, metabolic syndrome). Patient is in agreement to this plan of care. Verbal consent granted to MD. Story.
[2018-10-13 15:27] LABS: URINE APPEARANCE TURBID; URINE BILIRUBIN NEGATIVE (<2.0 mg/dL); URINE COLOR AMBER; URINE GLUCOSE (UA) NEGATIVE (NEGATIVE); URINE KETONE NEGATIVE (NEGATIVE); URINE LEUK ESTERASE NEGATIVE (NEGATIVE); URINE NITRITE NEGATIVE (NEGATIVE); URINE PROTEIN NEGATIVE (NEGATIVE); URINE UROBILINOGEN NEGATIVE mg/dL (0.2-1.0)
[2018-10-13] MEDS: QUEtiapine FUMARATE 100 MG TABLET (FP) PO SCH (22:02)
[2018-10-13] MEDS: risperiDONE 1 MG TABLET (FP) PO SCH (22:02)
[2018-10-13] MEDS: THIAMINE HCL 100 MG TABLET (FP) PO SCH (22:03)
[2018-10-14] MEDS: chlordiazePOXIDE HCL 25 MG CAPSULE PO SCH ×2 (05:23→10:33)
[2018-10-14] MEDS: SERTRALINE HCL 50 MG TABLET (FP) PO SCH (10:33)
[2018-10-14] MEDS: NICOTINE 21 MG/24 HOURS TOPICAL PATCH TD SCH (10:33)
[2018-10-14] MEDS: risperiDONE 1 MG TABLET (FP) PO SCH ×2 (10:33→22:07)
[2018-10-14] MEDS: METHADONE HCL 5 MG TABLET (FOR DETOX USE ONLY) PO SCH (10:33)
[2018-10-14] MEDS: PRENATAL VITAMINS W/ FOLIC ACID TABLET (FP) PO SCH (10:33)
--- NOTE | 2018-10-14 10:46 | PN ---
[facility] CIWA - CIWA Score Nausea/Vomitin-Mild Nausea/No Vomiting Muscle Tremors: 3 Anxiety: 4-Mod. Anxious/Guarded Agitation: 2 Paroxysmal Sweats: 1-Minimal Palms Moist Orientation: 0-Oriented Tacttile Disturbances: 0-None Auditory Disturbances: 0-None Visual Disturbances: 0-None Headache: 0-None Present CIWA-Ar Total Score: 11 BHS COWS - Scale Resting Pulse: 0= [place] 80 or Below Sweatin= Chills/Flushing Restless Observation: 0= Sits Still Pupil Size: 0= Normal to Room Light Bone or Joint Aches: 1= Mild Discomfort Runny Nose/ Eye Tearin= Nasal Congestion GI Upset > 30mins: 1= Stomach Cramp Tremor Observation of Outstretched Hands: 2= Slight Tremor Visible Yawning Observation: 1= 1-2x During Session Anxiety or Irritability: 1=Feels Anxious/Irritable Goose Flesh Skin: 0=Smooth Skin COWS Score: 8 S Progress Note (SOAP) Subjective: body aches joints pain muscle cramping tremor sweating anxiety Objective: 10/14/18 10:45 Vital Signs Temperature 96.2 F L 10/14/18 09:16 Pulse Rate 67 10/14/18 09:16 Respiratory Rate 16 10/14/18 09:16 Blood Pressure 108/66 10/14/18 09:16 O2 Sat by Pulse Oximetry (%) Laboratory Last Values WBC 8.4 K/mm3 (4.0-10.0) 10/13/18 06:00 RBC 4.68 M/mm3 (4.00-5.60) 10/13/18 06:00 Hgb 13.4 GM/dL (11.7-16.9) 10/13/18 06:00 Hct 41.5 % (35.4-49) 10/13/18 06:00 MCV 88.7 fl (80-96) 10/13/18 06:00 MCH 28.6 pg (25.7-33.7) 10/13/18 06:00 MCHC 32.3 g/dl (32.0-35.9) 10/13/18 06:00 RDW 14.8 % (11.9-15.9) 10/13/18 06:00 Plt Count 208 K/MM3 (134-434) 10/13/18 06:00 MPV 10.1 fl (7.5-11.1) D 10/13/18 06:00 Sodium 140 mmol/L (136-145) 10/13/18 06:00 Potassium 4.3 mmol/L (3.5-5.1) 10/13/18 06:00 Chloride 106 mmol/L (98-107) 10/13/18 06:00 Carbon Dioxide 25 mmol/L (21-32) 10/13/18 06:00 Anion Gap 8 MMOL/L (8-16) 10/13/18 06:00 BUN 15 mg/dL (7-18) 10/13/18 06:00 Creatinine 0.9 mg/dL (0.55-1.3) 10/13/18 06:00 Creat Clearance w eGFR > 60 (>60) 10/13/18 06:00 Random Glucose 129 mg/dL (74-106) H 10/13/18 06:00 Calcium 8.5 mg/dL (8.5-10.1) 10/13/18 06:00 Total Bilirubin 0.4 mg/dL (0.2-1) 10/13/18 06:00 AST 53 U/L (15-37) H 10/13/18 06:00 ALT 38 U/L (13-61) 10/13/18 06:00 Alkaline Phosphatase 116 U/L (45-117) 10/13/18 06:00 Total Protein 7.4 g/dl (6.4-8.2) 10/13/18 06:00 Albumin 3.6 g/dl (3.4-5.0) 10/13/18 06:00 Urine Color Juli[place] 10/12/18 11:45 Urine Appearance Turbid 10/12/18 11:45 Urine pH 5.0 (5.0-8.0) 10/12/18 11:45 Ur Specific [place] 1.028 (1.010-1.035) 10/12/18 11:45 Urine Protein Negative (NEGATIVE) 10/12/18 11:45 Urine Glucose (UA) Negative (NEGATIVE) 10/12/18 11:45 Urine Ketones Negative (NEGATIVE) 10/12/18 11:45 Urine Blood Negative (NEGATIVE) 10/12/18 11:45 Urine Nitrite Negative (NEGATIVE) 10/12/18 11:45 Urine Bilirubin Negative (<2.0 mg/dL) 10/12/18 11:45 Urine Urobilinogen Negative mg/dL (0.2-1.0) 10/12/18 11:45 Ur Leukocyte Esterase Negative (NEGATIVE) 10/12/18 11:45 RPR Titer Nonreactive (NONREACTIVE) 10/13/18 06:00 lab noted Assessment: 10/14/18 10:45 withdrawal sx Plan: continue detox
[2018-10-14] MEDS: chlordiazePOXIDE 5 MG CAPSULE PO SCH ×2 (17:00→22:07)
[2018-10-14] MEDS: QUEtiapine FUMARATE 100 MG TABLET (FP) PO SCH (22:07)
[2018-10-14] MEDS: THIAMINE HCL 100 MG TABLET (FP) PO SCH (22:07)
[2018-10-15] MEDS: chlordiazePOXIDE 5 MG CAPSULE PO SCH ×2 (05:40→10:09)
[2018-10-15] MEDS: SERTRALINE HCL 50 MG TABLET (FP) PO SCH (10:06)
[2018-10-15] MEDS: PRENATAL VITAMINS W/ FOLIC ACID TABLET (FP) PO SCH (10:06)
[2018-10-15] MEDS: METHADONE HCL 5 MG TABLET (FOR DETOX USE ONLY) PO SCH (10:07)
[2018-10-15] MEDS: NICOTINE 21 MG/24 HOURS TOPICAL PATCH TD SCH (10:08)
[2018-10-15] MEDS: risperiDONE 1 MG TABLET (FP) PO SCH ×2 (10:08→22:01)
--- NOTE | 2018-10-15 13:49 | PN ---
[facility] Progress Note (SOAP) Subjective: sweating tremor anxiety body aches Objective: 10/15/18 13:48 Vital Signs Temperature 98.9 F 10/15/18 13:24 Pulse Rate 71 10/15/18 13:24 Respiratory Rate 17 10/15/18 13:24 Blood Pressure 124/76 10/15/18 13:24 O2 Sat by Pulse Oximetry (%) Laboratory Last Values WBC 8.4 K/mm3 (4.0-10.0) 10/13/18 06:00 RBC 4.68 M/mm3 (4.00-5.60) 10/13/18 06:00 Hgb 13.4 GM/dL (11.7-16.9) 10/13/18 06:00 Hct 41.5 % (35.4-49) 10/13/18 06:00 MCV 88.7 fl (80-96) 10/13/18 06:00 MCH 28.6 pg (25.7-33.7) 10/13/18 06:00 MCHC 32.3 g/dl (32.0-35.9) 10/13/18 06:00 RDW 14.8 % (11.9-15.9) 10/13/18 06:00 Plt Count 208 K/MM3 (134-434) 10/13/18 06:00 MPV 10.1 fl (7.5-11.1) D 10/13/18 06:00 Sodium 140 mmol/L (136-145) 10/13/18 06:00 Potassium 4.3 mmol/L (3.5-5.1) 10/13/18 06:00 Chloride 106 mmol/L (98-107) 10/13/18 06:00 Carbon Dioxide 25 mmol/L (21-32) 10/13/18 06:00 Anion Gap 8 MMOL/L (8-16) 10/13/18 06:00 BUN 15 mg/dL (7-18) 10/13/18 06:00 Creatinine 0.9 mg/dL (0.55-1.3) 10/13/18 06:00 Creat Clearance w eGFR > 60 (>60) 10/13/18 06:00 Random Glucose 129 mg/dL (74-106) H 10/13/18 06:00 Calcium 8.5 mg/dL (8.5-10.1) 10/13/18 06:00 Total Bilirubin 0.4 mg/dL (0.2-1) 10/13/18 06:00 AST 53 U/L (15-37) H 10/13/18 06:00 ALT 38 U/L (13-61) 10/13/18 06:00 Alkaline Phosphatase 116 U/L (45-117) 10/13/18 06:00 Total Protein 7.4 g/dl (6.4-8.2) 10/13/18 06:00 Albumin 3.6 g/dl (3.4-5.0) 10/13/18 06:00 Urine Color Julieta 10/12/18 11:45 Urine Appearance Turbid 10/12/18 11:45 Urine pH 5.0 (5.0-8.0) 10/12/18 11:45 Ur Specific [place] 1.028 (1.010-1.035) 10/12/18 11:45 Urine Protein Negative (NEGATIVE) 10/12/18 11:45 Urine Glucose (UA) Negative (NEGATIVE) 10/12/18 11:45 Urine Ketones Negative (NEGATIVE) 10/12/18 11:45 Urine Blood Negative (NEGATIVE) 10/12/18 11:45 Urine Nitrite Negative (NEGATIVE) 10/12/18 11:45 Urine Bilirubin Negative (<2.0 mg/dL) 10/12/18 11:45 Urine Urobilinogen Negative mg/dL (0.2-1.0) 10/12/18 11:45 Ur Leukocyte Esterase Negative (NEGATIVE) 10/12/18 11:45 RPR Titer Nonreactive (NONREACTIVE) 10/13/18 06:00 lab noted Assessment: 10/15/18 13:49 withdrawal sx Plan: continue detox
[2018-10-15] MEDS ORDERED: BACLOFEN 10 MG TABLET (FP) PO ONE (14:35)
[2018-10-15] MEDS: chlordiazePOXIDE HCL 10 MG CAPSULE PO SCH ×2 (16:29→22:01)
[2018-10-15] MEDS: THIAMINE HCL 100 MG TABLET (FP) PO SCH (22:01)
[2018-10-15] MEDS: QUEtiapine FUMARATE 100 MG TABLET (FP) PO SCH (22:01)
[2018-10-16] MEDS: chlordiazePOXIDE HCL 10 MG CAPSULE PO SCH (06:23)
[2018-10-16] MEDS: risperiDONE 1 MG TABLET (FP) PO SCH (09:08)
[2018-10-16] MEDS: PRENATAL VITAMINS W/ FOLIC ACID TABLET (FP) PO SCH (09:08)
[2018-10-16] MEDS: SERTRALINE HCL 50 MG TABLET (FP) PO SCH (09:15)
[2018-10-16] MEDS: NICOTINE 21 MG/24 HOURS TOPICAL PATCH TD SCH (09:24)
[2018-10-16 09:38] VITALS: BP 129/79; PULSE 87; TEMP 98.8
--- NOTE | 2018-10-16 09:41 | PN ---
[facility] Progress Note Note: Psychiatric nurse practitioner note: Patient discharged from detox today and was accepted to the rehabilitation program at [facility]. Patient will require a 30 day prescription of his current psychotropic medications. Patient accepted Zoloft 100mg daily + seroquel 100mg HS + Risperdal 1mg BID while in detox. A 30 day prescription of his medications will be electronically sent to patient's pharmacy at [address] [place] [address] pharmacy, [address] [place] [address].
[2018-10-16] MEDS ORDERED: METHADONE HCL 10 MG TABLET (FOR DETOX USE ONLY) PO SCH (10:00)
--- NOTE | 2018-10-16 14:41 | DS ---
[facility] Detox Discharge Summary Admission Date: 10/12/18 Discharge Date: 10/16/18 - History Present History: Alcohol Dependence, Cocaine Dependence, Opioid Dependence, Sedative Dependence Additional Comments: PATIENT GOING TO [facility] ([place], [place]) FOR AFTERCARE. PATIENT WAS DISCHARGED FROM DETOX UNIT IN STABLE MEDICAL CONDITION. Pertinent Past History: History of Hep C (Treated), History of Paranoid Schiozphrenia, Intravenous Drug User, Nicotine Dependence, Weight Loss. - Physical Exam Results Vital Signs: Vital Signs Temperature 98.8 F 10/16/18 09:00 Pulse Rate 87 10/16/18 09:00 Respiratory Rate 10/16/18 09:00 Blood Pressure 129/79 10/16/18 09:00 O2 Sat by Pulse Oximetry (%) Pertinent Admission Physical Exam Findings: WITHDRAWAL SYMPTOMS. Laboratory Tests 10/12/18 10/13/18 10/13/18 11:45 06:00 06:00 WBC 8.4 RBC 4.68 Hgb 13.4 Hct 41.5 MCV 88.7 MCH 28.6 MCHC 32.3 RDW 14.8 Plt Count 208 MPV 10.1 D Sodium 140 Potassium 4.3 Chloride 106 Carbon Dioxide 25 Anion Gap 8 BUN 15 Creatinine 0.9 Creat Clearance w eGFR > 60 Random Glucose 129 H Calcium 8.5 Total Bilirubin 0.4 AST 53 H ALT 38 Alkaline Phosphatase 116 Total Protein 7.4 Albumin 3.6 Urine Color Julieta Urine Appearance Turbid Urine pH 5.0 Ur Specific [place] 1.028 Urine Protein Negative Urine Glucose (UA) Negative Urine Ketones Negative Urine Blood Negative Urine Nitrite Negative Urine Bilirubin Negative Urine Urobilinogen Negative Ur Leukocyte Esterase Negative RPR Titer 10/13/18 06:00 WBC RBC Hgb Hct MCV MCH MCHC RDW Plt Count MPV Sodium Potassium Chloride Carbon Dioxide Anion Gap BUN Creatinine Creat Clearance w eGFR Random Glucose Calcium Total Bilirubin AST ALT Alkaline Phosphatase Total Protein Albumin Urine Color Urine Appearance Urine pH Ur Specific [place] Urine Protein Urine Glucose (UA) Urine Ketones Urine Blood Urine Nitrite Urine Bilirubin Urine Urobilinogen Ur Leukocyte Esterase RPR Titer Nonreactive LABS NOTED. - Treatment Hospital Course: Detox Protocol Followed, Detoxed Safely, Responded well, Discharged Condition Good, Rehab Referral Accepted Patient has Accepted a Rehab Referral to: [facility] ([place], [place]). - Medication Discharge Medications: Ambulatory Orders Risperidone [Risperdal -] 2 mg PO BID #60 tablet 09/17/17 Quetiapine Fumarate [Seroquel -] 300 mg PO HS 10/12/18 Sertraline HCl [Zoloft] 150 mg PO DAILY 10/12/18 Quetiapine Fumarate [Seroquel] 100 mg PO HS #30 tablet 10/16/18 Risperidone [Risperdal -] 1 mg PO BID #60 tablet 10/16/18 Sertraline HCl [Zoloft] 100 mg PO DAILY #30 tablet 10/16/18 - Diagnosis (1) Alcohol dependence with uncomplicated withdrawal Status: Acute (2) IVDU (intravenous drug user) Status: Acute (3) Opioid dependence with withdrawal Status: Acute (4) Weight loss Status: Acute (5) Cocaine dependence Status: Chronic Qualifiers: Substance use status: uncomplicated Qualified Code(s): F14.20 - Cocaine dependence, uncomplicated (6) Nicotine dependence Status: Chronic Qualifiers: Nicotine product type: cigarettes Substance use status: unspecified nicotine-induced disorder Qualified Code(s): F17.219 - Nicotine dependence, cigarettes, with unspecified nicotine-induced disorders (7) Paranoid schizophrenia Status: Chronic (8) Sedative, hypnotic or anxiolytic dependence with withdrawal, uncomplicated Status: Chronic (9) Substance induced mood disorder Status: Chronic - AMA Did Patient Leave Against Medical Advice: No
[2018-10-17] MEDS ORDERED: METHADONE HCL 5 MG TABLET (FOR DETOX USE ONLY) PO SCH (06:00)
== END 2018-10-16 09:40 | disposition home or self-care (01) | DRG 773 ==
LOC: YASAS 10:53 → Y3N 15:38
PROC: HZ2ZZZZ Detoxification Services for Substance Abuse Treatment (ICD-10-PCS; principal; 2018-10-12)
DX: F11.23 Opioid dependence with withdrawal (principal); F10.230 Alcohol dependence with withdrawal, uncomplicated; F13.230 Sedative, hypnotic or anxiolytic dependence with withdrawal, uncomplicated; F14.20 Cocaine dependence, uncomplicated; F17.219 Nicotine dependence, cigarettes, with unspecified nicotine-induced disorders; F20.0 Paranoid schizophrenia; F19.24 Other psychoactive substance dependence with psychoactive substance-induced mood disorder; B18.2 Chronic viral hepatitis C; Z91.5 Personal history of self-harm
CPT/HCPCS: 36415; 80053; 81003; 85027; 86593; J0475; J2794

== ENCOUNTER 2018-11-10 10:27 | Inpatient (IN) | payer OTHER ==
[2018-11-10 11:53] VITALS: BMI 27.4
--- NOTE | 2018-11-10 13:02 | HP ---
COWS - Scale Resting Pulse: 0= IN 80 or Below Sweatin=Flushed/Facial Moisture Restless Observation: 3= Extraneous Movement Pupil Size: 0= Normal to Room Light Bone or Joint Aches: 2= Severe Diffuse Aches Runny Nose/ Eye Tearin= Runny Nose/Eyes GI Upset > 30mins: 1= Stomach Cramp Tremor Observation: 0= None Yawning Observation: 0= None Anxiety or Irritability: 4=Extreme Anxiety Goose Flesh Skin: 0=Smooth Skin COWS Score: 14 CIWA Score Nausea/Vomitin Muscle Tremors: 2 Anxiety: 4-Mod. Anxious/Guarded Agitation: 1-Slight > Activity Paroxysmal Sweats: 3 Orientation: 0-Oriented Tacttile Disturbances: 0-None Auditory Disturbances: 0-None Visual Disturbances: 2-Mild Sensitivity Headache: 2-Mild CIWA-Ar Total Score: 17 - Admission Criteria [facility]ASAS Guidelines: Admission for Medically Managed Detox: Requires at least one of the followin. CIWA greater than 12 2. Seizures within the past 24 hours 3. Delirium tremens within the past 24 hours 4. Hallucinations within the past 24 hours 5. Acute intervention needed for co occurring medical disorder 6. Acute intervention needed for co occurring psychiatric disorder 7. Severe withdrawal that cannot be handled at a lower level of care (continued vomiting, continued diarrhea, abnormal vital signs) requiring intravenous medication and/or fluids 8. Patient presents the following: CIWA greater than 12 Admission Criteria Met: Admission criteria met Admission ROS [facility] Allergies/Adverse Reactions: Allergies Allergy/AdvReac Type Severity Reaction Status Date / Time No Known Allergies Allergy Verified 11/10/18 13:39 History of Present Illness: patient here requesting detox from etoh use , reports 12 beers and 1 pint/day x 3 months, reports tremors , denies blackouts or seizures , + falls while intoxicated , denies injuries , most recently 2 weeks ago . First age of use 16 , prior detox ,at this facility , left AMA . States was at [facility] yesterday , arm checked , given IVF and " some meds " , did not bring d/c paperwork . heroin use : 8 bags /day IVDU in [place] [facility] since age 16 , needles from exchange , denies sharing , + re-using , + abscess , OD x 1 , Narcan at program. cocaine use : 20$ /day ivdu since age 16 methadone : illicit use 40 mg , 2 days ago fentanyl : denies use bup : reports use 2 days ago benzo - denies use tobacco : 1 ppd PMHX : denies PSHx : denies Psych : SAD , depression Meds : see list SHX : [facility], unemployed , finances habit through odd jobs, bottle recycling . denies current legal issues . Exam Limitations: Clinical Condition - Ebola screening Have you traveled outside of the country in the last 21 days: No Have you had contact with anyone from an Ebola affected area: No Have you been sick,other than usual withdrawal symptoms: No Do you have a fever: No - Review of Systems Constitutional: See HPI EENT: reports: Other (denies dysphagia) Respiratory: reports: No Symptoms reported Cardiac: reports: No Symptoms Reported GI: reports: See HPI : reports: No Symptoms Reported Musculoskeletal: reports: Muscle Pain Integumentary: reports: See HPI Neuro: reports: Headache Endocrine: reports: No Symptoms Reported Psychiatric: reports: Orientated x3, Agitated (see HPI), Anxious Patient History - Patient Medical History Hx Anemia: No Hx Asthma: No Hx Chronic Obstructive Pulmonary Disease (COPD): No Hx Cancer: No Hx Cardiac Disorders: No Hx Congestive Heart Failure: No Hx Hypertension: No Hx Hypercholesterolemia: No Hx Pacemaker: No HX Cerebrovascular Accident: No Hx Seizures: No Hx Dementia: No Hx Diabetes: No Hx Gastrointestinal Disorders: No Hx Liver Disease: No Hx Genitourinary Disorders: No Hx Sexually Transmitted Disorders: No Hx Renal Disease (ESRD): No Hx Thyroid Disease: No Hx Human Immunodeficiency Virus (HIV): No Hx Hepatitis C: Yes (diagnosed last yr 2012 -reated) Hx Depression: No Hx Suicide Attempt: Yes (18 years ago) Hx Bipolar Disorder: No Hx Schizophrenia: Yes (on meds) - Patient Surgical History Past Surgical History: No Hx Neurologic Surgery: No Hx Cataract Extraction: No Hx Cardiac Surgery: No Hx Lung Surgery: No Hx Breast Surgery: No Hx Breast Biopsy: No Hx Abdominal Surgery: No Hx Appendectomy: No Hx Cholecystectomy: No Hx Genitourinary Surgery: No Hx Section: No Hx Orthopedic Surgery: No Other Surgical History: partial amputation left 2nd toe by great toe Anesthesia Reaction: No - PPD History Date: 10/14/18 Results: 0 mm - Smoking Cessation Smoking history: Current every day smoker Have you smoked in the past 12 months: Yes Aproximately how many cigarettes per day: 20 Cigars Per Day: 0 Hx Chewing Tobacco Use: No Initiated information on smoking cessation: No - Substances Abused Alcohol Route: Oral Frequency: Daily Amount used: 10-12 CANS OF BEER, 1 PINT VODKA Age of first use: 16 Date of Last Use: 11/09/18 Heroin Route: Injection Frequency: Daily Amount used: 8 BAGS Age of first use: 16 Date of Last Use: 11/09/18 Cocaine Route: Injection Frequency: Daily Amount used: $50 Age of first use: 16 Date of Last Use: 11/09/18 Family Disease History - Family Disease History Family Disease History: Other: Father ( - heroin), Mother ( after operation ), Brother (1 brother - healthy), Sister (3 sisters - healthy) Admission Physical Exam [facility] - Vital Signs Vital Signs: Vital Signs - 24 hr 11/10/18 11:48 Temperature 98.3 F Pulse Rate 77 Respiratory 20 Rate Blood Pressure 111/81 - Physical General Appearance: Yes: Disheveled, Moderate Distress, Anxious HEENTM: Yes: EOMI, Normocephalic, Normal Voice, Other (upper and lower dentures) Respiratory: Yes: Chest Non-Tender, Lungs Clear Neck: Yes: No masses,lesions,Nodules, Trachea in good position Cardiology: Yes: Regular Rhythm, Regular Rate, S1, S2 Abdominal: Yes: Normal Bowel Sounds, Non Tender, Soft Genitourinary: Yes: Within Normal Limits Musculoskeletal: Yes: full range of Motion, Gait Steady Extremities: Yes: Tremors, Erythema (L UE mild , non- tender), Other Neurological: Yes: Motor Strength 5/5 Integumentary: Yes: Track Álvarez ([facility] [facility] antecubital and FA) - Diagnostic (1) Alcohol dependence with uncomplicated withdrawal Current Visit: No Status: Acute (2) Opioid dependence with withdrawal Current Visit: No Status: Acute (3) Cocaine dependence Current Visit: No Status: Chronic Qualifiers: Substance use status: uncomplicated Qualified Code(s): F14.20 - Cocaine dependence, uncomplicated (4) Nicotine dependence Current Visit: No Status: Chronic Qualifiers: Nicotine product type: cigarettes Substance use status: unspecified nicotine-induced disorder Qualified Code(s): F17.219 - Nicotine dependence, cigarettes, with unspecified nicotine-induced disorders [facility] Breath Alcohol Content Breath Alcohol Content: 0 Urine Drug Screen - Results Drug Screen Negative: No Urine Drug Screen Results: BRENDEN-Cocaine, OPI-Opiates, BAR-Barbiturates, BZO- Benzodiazepines, MTD-Methadone, FEN-Fentanyl, BUP-Suboxone
[2018-11-10] MEDS ORDERED: ACETAMINOPHEN 325 MG TABLET (FP) PO PRN (13:09)
[2018-11-10] MEDS ORDERED: chlordiazePOXIDE HCL 25 MG CAPSULE PO PRN (13:09)
[2018-11-10] MEDS ORDERED: guaiFENesin/D-METHORPHAN HB 10 ML UNIT-DOSE CUPS PO PRN (13:09)
[2018-11-10] MEDS ORDERED: P-EPHED 60MG/TRIPROLIDI 2.5MG TABLET PO PRN (13:09)
[2018-11-10] MEDS ORDERED: MAGNESIUM CITRATE 300 ML BOTTLE PO PRN (13:09)
[2018-11-10] MEDS ORDERED: MENTHOL/PHENOL 1 EACH UD MM PRN (13:09)
[2018-11-10] MEDS ORDERED: MAGNESIUM HYDROX 2400MG/30ML ORAL SUSPENSION 30 ML CUP PO PRN (13:09)
[2018-11-10] MEDS ORDERED: MAG HYDROX/AL HYDROX/SIMETH 30 ML UNIT-DOSE CUP PO PRN (13:09)
[2018-11-10] MEDS ORDERED: IBUPROFEN 400 MG TABLET (FP) PO PRN (13:09)
[2018-11-10] MEDS ORDERED: NICOTINE POLACRILEX 2 MG GUM BUC PRN (13:09)
[2018-11-10] MEDS ORDERED: METHADONE HCL 10 MG TABLET (FOR DETOX USE ONLY) PO ONE ×2 (14:30→23:00)
--- NOTE | 2018-11-10 15:37 | CONSULT ---
[facility] Psychiatric Consult - Data Date of interview: 11/10/18 Admission source: [facility] Identifying data: Another admission to [facility] for this 48 y/o male self-referred for detoxification (cocaine, heroin, alcohol, xanax). Patient is single without dependents, undomiciled, unemployed and supported on SSI benefits. Substance Abuse History: Confirmed by the patient in this interview. Details in current [facility] report : Smoking history: Current every day smoker. Have you smoked in the past 12 months: Yes. Aproximately how many cigarettes per day: 20. Cigars Per Day: 0. Hx Chewing Tobacco Use: No. Initiated information on smoking cessation: No. - Substances Abused. Alcohol. Route: Oral. Frequency: Daily. Amount used: 10-12 CANS OF BEER, 1 PINT VODKA. Age of first use: 16. Date of Last Use: 11/09/18. Heroin. Route: Injection. Frequency : Daily. Amount used: 8 BAGS. Age of first use: 16. Date of Last Use: . Cocaine. Route: Injection. Frequency: Daily. Amount used: $50. Age of first use: 16. Date of Last Use: 11/09/18 Medical History: Consistent with hepatitis C (diagnosed in 2012) + history of orthosurgery (partial amputation of second toe of left foot). No known allergies. Psychiatric History: Patient has been diagnosed with Paranoid Schizophrenia. Onset of psychiatric illness : age 9. History of multiple psychiatric hospitalizations ([facility], [facility], [facility], [facility], [facility]). Mr Mendez is known for his chronic non-adherence to his psychotropic medications (sertraline 100 mg/day + seroquel 100 mg/hs + risperdal 2 mg bid). Last prescribed at [facility]. No contact with OPD psychiatric care providers since discharged from [facility]. Patient declares ray uses CPE settings for medications refills. No reported history of suicide attempts. Physical/Sexual Abuse/Trauma History: Patient denies. Additional Comment: Urine Drug Screen Results: BRENDEN-Cocaine, OPI-Opiates, BAR- Barbiturates, BZO-Benzodiazepines, MTD-Methadone, FEN-Fentanyl, BUP-Suboxone. Noted. Mental Status Exam - Mental Status Exam Alert and Oriented to: Time, Place, Person Cognitive Function: Good Patient Appearance: Well Groomed (tattoos painted on right arm/forearm) Mood: Nervous, Withdrawn Affect: Mood Congruent, Constricted Patient Behavior: Sedated (mildy sedated but easily awakened and verbal), Fatigued, Cooperative Speech Pattern: Clear, Appropriate Voice Loudness: Normal Thought Process: Goal Oriented Thought Disorder: Not Present Hallucinations: Denies Suicidal Ideation: Denies Homicidal Ideation: Denies Insight/Judgement: Poor Sleep: Well Appetite: Good Muscle strength/Tone: Normal Gait/Station: Normal (observed as ambulatory upon arrival to the unit) Psychiatric Findings - Problem List ([place] 1, 2,3) (1) Alcohol dependence with uncomplicated withdrawal Current Visit: Yes Status: Acute (2) Opioid dependence with withdrawal Current Visit: Yes Status: Acute (3) Cocaine dependence Current Visit: Yes Status: Chronic Qualifiers: Substance use status: uncomplicated Qualified Code(s): F14.20 - Cocaine dependence, uncomplicated (4) Nicotine dependence Current Visit: Yes Status: Chronic Qualifiers: Nicotine product type: cigarettes Substance use status: unspecified nicotine-induced disorder Qualified Code(s): F17.219 - Nicotine dependence, cigarettes, with unspecified nicotine-induced disorders (5) Substance induced mood disorder Current Visit: Yes Status: Chronic (6) Paranoid schizophrenia Current Visit: No Status: Chronic Comment: Asymptomatic. (7) Non-compliance Current Visit: Yes Status: Chronic Comment: with psychiatric OPD care + medications. (8) Insomnia Current Visit: Yes Status: Chronic - Initial Treatment Plan Initial Treatment Plan: Psychoeducation. Sleep hygiene. Detoxification in progress. Hold risperdal, sertraline and seroquel for now (patient found sedated on admission; hypotensive). Monitor vitals. Will resume these drugs in next 24 hours after re-assessment of mental status. Falls precautions. Observation.
--- NOTE | 2018-11-10 16:01 | EKG ---
Test Reason : Blood Pressure : / mmHG Vent. Rate : 072 BPM Atrial Rate : 072 BPM P-R Int : 150 ms QRS Dur : 100 ms QT Int : 402 ms P-R-T Axes : 036 035 041 degrees QTc Int : 440 ms NORMAL SINUS RHYTHM NORMAL ECG WHEN COMPARED WITH ECG OF 13-SEP-2017 16:59, NO SIGNIFICANT CHANGE WAS FOUND Confirmed by Celso Perez MD ([id number]) on 11/10/2018 4:00:46 PM Referred By: Confirmed By:Celso Perez MD
[2018-11-10] MEDS: chlordiazePOXIDE HCL 25 MG CAPSULE PO SCH ×2 (17:10→22:20)
[2018-11-10] MEDS ORDERED: MELATONIN 5 MG TABLETS PO PRN (22:00)
[2018-11-10] MEDS ORDERED: risperiDONE 2 MG TABLET PO SCH (22:00)
[2018-11-10] MEDS: THIAMINE HCL 100 MG TABLET (FP) PO SCH (22:19)
[2018-11-11] MEDS: chlordiazePOXIDE HCL 25 MG CAPSULE PO SCH ×4 (05:45→22:07)
[2018-11-11] MEDS ORDERED: METHADONE HCL 10 MG TABLET (FOR DETOX USE ONLY) PO SCH (10:00)
[2018-11-11] MEDS ORDERED: PRENATAL VITAMINS W/ FOLIC ACID TABLET (FP) PO SCH (10:00)
[2018-11-11 10:07] LABS: HEMATOCRIT 36.7 % (35.4-49); HEMOGLOBIN 12.9 GM/dL (11.7-16.9); MCHC 35.2 g/dl (32.0-35.9); MEAN CELL VOLUME 88.1 fl (80-96); MEAN PLT VOLUME 9.4 fl (7.5-11.1); PLATELET COUNT 227 K/MM3 (134-434); RBC 4.17 M/mm3 (4.00-5.60); RDW 15.2 % (11.9-15.9); WHITE BLOOD COUNT 6.7 K/mm3 (4.0-10.0)
--- NOTE | 2018-11-11 10:53 | PN ---
[facility] CIWA - CIWA Score Nausea/Vomitin-Mild Nausea/No Vomiting Muscle Tremors: 3 Anxiety: 3 Agitation: 4-Moderately Restless Paroxysmal Sweats: 1-Minimal Palms Moist Orientation: 1-Uncertain about Date Tacttile Disturbances: 0-None Auditory Disturbances: 0-None Visual Disturbances: 0-None Headache: 1-Very Mild CIWA-Ar Total Score: 14 S COWS - Scale Resting Pulse: 0= CT 80 or Below Sweatin= Chills/Flushing Restless Observation: 0= Sits Still Pupil Size: 0= Normal to Room Light Bone or Joint Aches: 2= Severe Diffuse Aches Runny Nose/ Eye Tearin= Nasal Congestion GI Upset > 30mins: 2= Nausea/Diarrhea Tremor Observation of Outstretched Hands: 1= Tremor [place], Not Seen Yawning Observation: 2= >3x During Session Anxiety or Irritability: 1=Feels Anxious/Irritable Goose Flesh Skin: 0=Smooth Skin COWS Score: 10 [facility] Progress Note (SOAP) Subjective: tremor body aches muscle pain trouble sleep at night anxiety sweating Objective: 11/11/18 13:30 Vital Signs Temperature 97.3 F L 11/11/18 09:17 Pulse Rate 81 11/11/18 09:17 Respiratory Rate 17 11/11/18 09:17 Blood Pressure 113/74 11/11/18 09:17 O2 Sat by Pulse Oximetry (%) Laboratory Last Values WBC 6.7 K/mm3 (4.0-10.0) 11/11/18 06:00 RBC 4.17 M/mm3 (4.00-5.60) 11/11/18 06:00 Hgb 12.9 GM/dL (11.7-16.9) 11/11/18 06:00 Hct 36.7 % (35.4-49) 11/11/18 06:00 MCV 88.1 fl (80-96) 11/11/18 06:00 MCH 31.0 pg (25.7-33.7) 11/11/18 06:00 MCHC 35.2 g/dl (32.0-35.9) 11/11/18 06:00 RDW 15.2 % (11.9-15.9) 11/11/18 06:00 Plt Count 227 K/MM3 (134-434) 11/11/18 06:00 MPV 9.4 fl (7.5-11.1) 11/11/18 06:00 Sodium 135 mmol/L (136-145) L 11/11/18 06:00 Potassium 3.9 mmol/L (3.5-5.1) 11/11/18 06:00 Chloride 103 mmol/L (98-107) 11/11/18 06:00 Carbon Dioxide 26 mmol/L (21-32) 11/11/18 06:00 Anion Gap 7 MMOL/L (8-16) L 11/11/18 06:00 BUN 11 mg/dL (7-18) 11/11/18 06:00 Creatinine 0.8 mg/dL (0.55-1.3) 11/11/18 06:00 Creat Clearance w eGFR > 60 (>60) 11/11/18 06:00 Random Glucose 135 mg/dL (74-106) H 11/11/18 06:00 Calcium 8.5 mg/dL (8.5-10.1) 11/11/18 06:00 Total Bilirubin 0.4 mg/dL (0.2-1) 11/11/18 06:00 AST 45 U/L (15-37) H 11/11/18 06:00 ALT 37 U/L (13-61) 11/11/18 06:00 Alkaline Phosphatase 118 U/L (45-117) H 11/11/18 06:00 Total Protein 7.7 g/dl (6.4-8.2) 11/11/18 06:00 Albumin 3.7 g/dl (3.4-5.0) 11/11/18 06:00 lab noted Assessment: 11/11/18 13:31 withdrawal sx Plan: continue detox
[2018-11-11 11:07] LABS: ALBUMIN 3.7 g/dl (3.4-5.0); ALK PHOS 118 U/L (45-117); ANION GAP 7 MMOL/L (8-16); BILIRUBIN,TOTAL 0.4 mg/dL (0.2-1); BLOOD UREA NITROGEN 11 mg/dL (7-18); CALCIUM 8.5 mg/dL (8.5-10.1); CHLORIDE 103 mmol/L (98-107); CO2 26 mmol/L (21-32); CREATININE 0.8 mg/dL (0.55-1.3); GLUCOSE,RANDOM 135 mg/dL (74-106); POTASSIUM 3.9 mmol/L (3.5-5.1); SGOT/AST 45 U/L (15-37); SGPT/ALT 37 U/L (13-61); SODIUM 135 mmol/L (136-145); TOT PROT 7.7 g/dl (6.4-8.2)
[2018-11-11] MEDS: THIAMINE HCL 100 MG TABLET (FP) PO SCH (22:07)
[2018-11-12] MEDS: chlordiazePOXIDE HCL 25 MG CAPSULE PO SCH (05:54)
[2018-11-12 06:24] VITALS: BP 107/60; PULSE 54; TEMP 97.5
[2018-11-12] MEDS ORDERED: METHADONE HCL 5 MG TABLET (FOR DETOX USE ONLY) PO SCH (10:00)
--- NOTE | 2018-11-12 16:14 | DS ---
[facility] Detox Discharge Summary Admission Date: 11/10/18 Discharge Date: 11/12/18 - History Present History: Alcohol Dependence, Opioid Dependence Additional Comments: 48 years old male admitted on 11/10/18 for alcohol and opiate withdrawal stabilization insists to leave the detox unit that he has to save his house and he has some financial issues needed to be resolved patient is alert no acute distress denies suicidal ideation Pertinent Past History: encourage the patient to attend 12 step community self help meeting strong recommend peanut picker narcan kit discuss medication assisted treatment program - Physical Exam Results Vital Signs: Vital Signs Temperature 97.5 F L 11/12/18 06:23 Pulse Rate 54 L 11/12/18 06:23 Respiratory Rate 18 11/12/18 06:23 Blood Pressure 107/60 11/12/18 06:23 O2 Sat by Pulse Oximetry (%) Pertinent Admission Physical Exam Findings: alcohol withdrawal sx Laboratory Last Values WBC 6.7 K/mm3 (4.0-10.0) 11/11/18 06:00 RBC 4.17 M/mm3 (4.00-5.60) 11/11/18 06:00 Hgb 12.9 GM/dL (11.7-16.9) 11/11/18 06:00 Hct 36.7 % (35.4-49) 11/11/18 06:00 MCV 88.1 fl (80-96) 11/11/18 06:00 MCH 31.0 pg (25.7-33.7) 11/11/18 06:00 MCHC 35.2 g/dl (32.0-35.9) 11/11/18 06:00 RDW 15.2 % (11.9-15.9) 11/11/18 06:00 Plt Count 227 K/MM3 (134-434) 11/11/18 06:00 MPV 9.4 fl (7.5-11.1) 11/11/18 06:00 Sodium 135 mmol/L (136-145) L 11/11/18 06:00 Potassium 3.9 mmol/L (3.5-5.1) 11/11/18 06:00 Chloride 103 mmol/L (98-107) 11/11/18 06:00 Carbon Dioxide 26 mmol/L (21-32) 11/11/18 06:00 Anion Gap 7 MMOL/L (8-16) L 11/11/18 06:00 BUN 11 mg/dL (7-18) 11/11/18 06:00 Creatinine 0.8 mg/dL (0.55-1.3) 11/11/18 06:00 Creat Clearance w eGFR > 60 (>60) 11/11/18 06:00 Random Glucose 135 mg/dL (74-106) H 11/11/18 06:00 Calcium 8.5 mg/dL (8.5-10.1) 11/11/18 06:00 Total Bilirubin 0.4 mg/dL (0.2-1) 11/11/18 06:00 AST 45 U/L (15-37) H 11/11/18 06:00 ALT 37 U/L (13-61) 11/11/18 06:00 Alkaline Phosphatase 118 U/L (45-117) H 11/11/18 06:00 Total Protein 7.7 g/dl (6.4-8.2) 11/11/18 06:00 Albumin 3.7 g/dl (3.4-5.0) 11/11/18 06:00 RPR Titer Nonreactive (NONREACTIVE) 11/11/18 06:00 lab noted - Treatment Hospital Course: Detox Protocol Followed, Responded well Patient has Accepted a Rehab Referral to: 12 step community self help - Medication Discharge Medications: Ambulatory Orders Risperidone [Risperdal -] 2 mg PO BID #60 tablet 09/17/17 Quetiapine Fumarate [Seroquel -] 300 mg PO HS 10/12/18 Sertraline HCl [Zoloft] 100 mg PO DAILY #30 tablet 10/16/18 Naloxone HCl [Narcan] 4 mg NS ASDIR PRN #1 spray 11/12/18 - Diagnosis (1) Alcohol dependence with uncomplicated withdrawal Status: Acute (2) Hepatitis C Status: Chronic Qualifiers: Viral hepatitis chronicity: chronic Hepatic coma status: without hepatic coma Qualified Code(s): B18.2 - Chronic viral hepatitis C (3) Nicotine dependence Status: Acute Qualifiers: Nicotine product type: cigarettes Substance use status: in withdrawal Qualified Code(s): F17.213 - Nicotine dependence, cigarettes, with withdrawal (4) Substance induced mood disorder Status: Suspected - AMA Did Patient Leave Against Medical Advice: Yes
[2018-11-12] MEDS ORDERED: chlordiazePOXIDE 5 MG CAPSULE PO SCH (17:00)
[2018-11-13] MEDS ORDERED: METHADONE HCL 10 MG TABLET (FOR DETOX USE ONLY) PO SCH (10:00)
[2018-11-13] MEDS ORDERED: chlordiazePOXIDE HCL 10 MG CAPSULE PO SCH (17:00)
[2018-11-14] MEDS ORDERED: METHADONE HCL 5 MG TABLET (FOR DETOX USE ONLY) PO SCH (06:00)
== END 2018-11-12 09:13 | disposition left against medical advice (07) | DRG 770 ==
LOC: YASAS 10:27 → Y3N 14:13
PROVIDERS: ADMIT Surgery; ATTEND Surgery
PROC: HZ2ZZZZ Detoxification Services for Substance Abuse Treatment (ICD-10-PCS; principal; 2018-11-10)
DX: F11.23 Opioid dependence with withdrawal (principal); F10.230 Alcohol dependence with withdrawal, uncomplicated; F14.20 Cocaine dependence, uncomplicated; F17.213 Nicotine dependence, cigarettes, with withdrawal; F19.24 Other psychoactive substance dependence with psychoactive substance-induced mood disorder; F20.0 Paranoid schizophrenia; B18.2 Chronic viral hepatitis C; G47.00 Insomnia, unspecified; Z89.422 Acquired absence of other left toe(s); Z91.19 Patient's noncompliance with other medical treatment and regimen; Z91.5 Personal history of self-harm
CPT/HCPCS: 36415; 80053; 85027; 86593; 93005; 93010

== ENCOUNTER 2018-12-22 10:56 | Inpatient (IN) | payer OTHER ==
[2018-12-22 12:50] VITALS: BMI 25.7
--- NOTE | 2018-12-22 15:23 | HP ---
COWS - Scale Resting Pulse: 0= [place] 80 or Below Sweatin= Chills/Flushing (HOT/COLD CHILLS) Restless Observation: 3= Extraneous Movement Pupil Size: 0= Normal to Room Light Bone or Joint Aches: 4=Acute Joint/Muscle Pain (" MY BACK/LEGS HURTS, WHOLE BODY ") Runny Nose/ Eye Tearin= Runny Nose/Eyes GI Upset > 30mins: 2= Nausea/Diarrhea Tremor Observation: 1= Tremor [place], Not Seen Yawning Observation: 0= None Anxiety or Irritability: 2=Irritable/Anxious Goose Flesh Skin: 0=Smooth Skin COWS Score: 15 CIWA Score Nausea/Vomitin-Mild Nausea/No Vomiting Muscle Tremors: 1-None Visible, but [place] Anxiety: 4-Mod. Anxious/Guarded Agitation: 4-Moderately Restless Paroxysmal Sweats: 1-Minimal Palms Moist Orientation: 0-Oriented Tacttile Disturbances: 0-None Auditory Disturbances: 0-None Visual Disturbances: 0-None Headache: 1-Very Mild CIWA-Ar Total Score: 12 - Admission Criteria [facility] Guidelines: Admission for Medically Managed Detox: Requires at least one of the followin. CIWA greater than 12 2. Seizures within the past 24 hours 3. Delirium tremens within the past 24 hours 4. Hallucinations within the past 24 hours 5. Acute intervention needed for co occurring medical disorder 6. Acute intervention needed for co occurring psychiatric disorder 7. Severe withdrawal that cannot be handled at a lower level of care (continued vomiting, continued diarrhea, abnormal vital signs) requiring intravenous medication and/or fluids 8. Patient presents the following: CIWA greater than 12 Admission Criteria Met: Admission criteria met Admission ROS S - [facility] Chief Complaint: "I WANT TO GIVE MYSELF A CHANCE. I WANNA GET CLEAN. I'M TIRED OF THIS, ILL BE 49 NEXT MONTH". Allergies/Adverse Reactions: Allergies Allergy/AdvReac Type Severity Reaction Status Date / Time No Known Allergies Allergy Verified 12/22/18 13:22 History of Present Illness: 48 Y/O H/MALE WITH A HX OF OF HEROIN,ALCOHOL/COCAINE DEPENDENCE SEEKING DETOX TX. PT HAS EXTENSIVE HX OF CD TREATMENT, LAST WAS NOVEMBER 2018 AND REPORTS UNABLE TO STAY CLEAN. DENIES ANY PMHx. REPORTS SX HX OF 2ND TOE AMPUTATION AND PSYCH HX OF DEPRESSION WITH MEDS. Exam Limitations: No Limitations - Ebola screening Have you traveled outside of the country in the last 21 days: No Have you had contact with anyone from an Ebola affected area: No Have you been sick,other than usual withdrawal symptoms: No - Review of Systems Constitutional: Chills, Night Sweats, Changes in sleep (SEROQUEL 300 MG HS; ZOLOFT 100 DAILY;RESPIRADAL 2MG TWICE A DAY.), Unintentional Wgt. Loss EENT: reports: Tearing, Nose Congestion, Sinus Pressure, Dental Problems (FULL BILATERAL DENTURES) Respiratory: reports: No Symptoms reported Cardiac: reports: No Symptoms Reported GI: reports: Constipated, Diarrhea, Nausea, Poor Fluid Intake, Vomiting, Indigestion, Abdominal cramping : reports: No Symptoms Reported Musculoskeletal: reports: Back Pain, Joint Pain, Muscle Pain, Other (LEFT 2ND TOE AMPUTATION) Integumentary: reports: Other (IVD INJ SITES ON BOTH ARMS.) Neuro: reports: Unsteady Gait (DUE TO GETTING "HIGH OR DRINKING TOO MUCH".) Endocrine: reports: No Symptoms Reported Hematology: reports: No Symptoms Reported Psychiatric: reports: Orientated x3, Anxious, Depressed Other Systems: Reviewed and Negative Patient History - Patient Medical History Hx Anemia: No Hx Asthma: No Hx Chronic Obstructive Pulmonary Disease (COPD): No Hx Cancer: No Hx Cardiac Disorders: No Hx Congestive Heart Failure: No Hx Hypertension: No Hx Hypercholesterolemia: No Hx Pacemaker: No HX Cerebrovascular Accident: No Hx Seizures: No Hx Dementia: No Hx Diabetes: No Hx Gastrointestinal Disorders: No Hx Liver Disease: No Hx Genitourinary Disorders: No Hx Sexually Transmitted Disorders: No (DENIES) Hx Renal Disease (ESRD): No Hx Thyroid Disease: No Hx Human Immunodeficiency Virus (HIV): No (DENIES) Hx Hepatitis C: Yes (diagnosed last yr 2012 -treated) Hx Depression: No Hx Suicide Attempt: Yes (Tried to hang himself at age 23 yrs old:DENIES CURRENT S/H/I) Hx Bipolar Disorder: No Hx Schizophrenia: Yes (ON MEDS-SEROQUEL,ZOLOFT,RESPIRADAL) - Patient Surgical History Past Surgical History: Yes Hx Neurologic Surgery: No Hx Cataract Extraction: No Hx Cardiac Surgery: No Hx Lung Surgery: No Hx Breast Surgery: No Hx Breast Biopsy: No Hx Abdominal Surgery: No Hx Appendectomy: No Hx Cholecystectomy: No Hx Genitourinary Surgery: No Hx Section: No Hx Orthopedic Surgery: No Other Surgical History: partial amputation left 2nd toe by great toe for osteomyletis Anesthesia Reaction: No - PPD History Previous Implant?: Yes Documented Results: Negative w/proof Implanted On Prior [facility] Admission?: Yes Date: 10/14/18 Results: 0mm PPD to be Administered?: No - Reproductive History Patient is a Female of Child Bearing Age (11 -55 yrs old): No (MALE) - Smoking Cessation Smoking history: Current every day smoker Have you smoked in the past 12 months: Yes Aproximately how many cigarettes per day: 20 Cigars Per Day: 0 Hx Chewing Tobacco Use: No Initiated information on smoking cessation: Yes 'Breaking Loose' booklet given: 12/22/18 - Substance & Tx. History Hx Alcohol Use: Yes Hx Substance Use: Yes Substance Use Type: Alcohol, Cocaine, Heroin Hx Substance Use Treatment: Yes (LAST TX AT [facility] DETOX) - Substances Abused Heroin Route: Injection Frequency: Daily Amount used: 7 BAGS Age of first use: 16 Date of Last Use: 12/21/18 Alcohol Route: Oral Frequency: Daily Amount used: 1 PINT VODKA Age of first use: 16 Date of Last Use: 12/22/18 Cocaine Route: Injection Frequency: Daily Amount used: $20 Age of first use: 19 Date of Last Use: 12/19/18 Family Disease History - Family Disease History Family Disease History: Other: Father ( - heroin), Mother ( after operation ), Brother (1 brother - healthy), Sister (3 sisters - healthy) Admission Physical Exam [facility] - Vital Signs Vital Signs: Vital Signs - 24 hr 12/22/18 12:48 Temperature 99.3 F Pulse Rate 77 Respiratory 18 Rate Blood Pressure 135/76 - Physical General Appearance: Yes: Moderate Distress, Irritable, Anxious HEENTM: Yes: EOMI, Normocephalic, CODIE, Pharynx Normal, Nasal Congestion, Rhinorrhea Respiratory: Yes: Chest Non-Tender, Lungs Clear, Normal Breath Sounds, No Respiratory Distress Neck: Yes: Supple, Trachea in good position Breast: Yes: Breast Exam Deferred Cardiology: Yes: Regular Rhythm, Regular Rate, S1, S2 Abdominal: Yes: Normal Bowel Sounds, Non Tender, Flat, Soft, Other (PETECHIAL BRUISES ON ABDOMEN FROM FALL ONE WEEK AGO.) Genitourinary: Yes: Other Back: Yes: Within Normal Limits Musculoskeletal: Yes: full range of Motion, Gait Steady Extremities: Yes: Normal Range of Motion, Non-Tender Neurological: Yes: medical parasitologist II-XII NML intact, Fully Oriented, Alert, Motor Strength 5/5 Integumentary: Yes: Dry, Warm, Track Álvarez (BOTH UPPER AND FOREARMS WITH BLACK/ BLUE INJ SITES.) Lymphatic: Yes: Within Normal Limits - Diagnostic (1) Alcohol dependence with uncomplicated withdrawal Current Visit: Yes Status: Acute (2) IVDU (intravenous drug user) Current Visit: Yes Status: Chronic (3) Nicotine dependence Current Visit: Yes Status: Acute Qualifiers: Nicotine product type: cigarettes Substance use status: in withdrawal Qualified Code(s): F17.213 - Nicotine dependence, cigarettes, with withdrawal (4) Opioid dependence with withdrawal Current Visit: Yes Status: Acute (5) Hepatitis C Current Visit: Yes Status: Chronic Qualifiers: Viral hepatitis chronicity: chronic Hepatic coma status: without hepatic coma Qualified Code(s): B18.2 - Chronic viral hepatitis C Cleared for Admission [facility] - Detox or Rehab [facility] Level of Care: Medically Managed Detox Regimen/Protocol: Methadone/Librium S Breath Alcohol Content Breath Alcohol Content: 0 Urine Drug Screen - Results Drug Screen Negative: No Urine Drug Screen Results: BRENDEN-Cocaine, OPI-Opiates, BAR-Barbiturates, MTD- Methadone, OXY-Oxycodone, FEN-Fentanyl Inpatient Rehab Admission - Rehab Decision to Admit Inpatient rehab admission?: No
[2018-12-22] MEDS ORDERED: IBUPROFEN 400 MG TABLET (FP) PO PRN (15:40)
[2018-12-22] MEDS ORDERED: MAGNESIUM HYDROX 2400MG/30ML ORAL SUSPENSION 30 ML CUP PO PRN (15:40)
[2018-12-22] MEDS ORDERED: hydrOXYzine PAMOATE 25 MG CAPSULE (FP) PO PRN (15:40)
[2018-12-22] MEDS ORDERED: MAGNESIUM CITRATE 300 ML BOTTLE PO PRN (15:40)
[2018-12-22] MEDS ORDERED: ACETAMINOPHEN 325 MG TABLET (FP) PO PRN ×2 (15:40)
[2018-12-22] MEDS ORDERED: NICOTINE POLACRILEX 4 MG GUM BUC PRN (15:40)
[2018-12-22] MEDS ORDERED: METHOCARBAMOL 500 MG TABLET PO PRN (15:40)
[2018-12-22] MEDS ORDERED: MAG HYDROX/AL HYDROX/SIMETH 30 ML UNIT-DOSE CUP PO PRN (15:40)
[2018-12-22] MEDS ORDERED: chlordiazePOXIDE HCL 25 MG CAPSULE PO PRN (15:40)
[2018-12-22] MEDS ORDERED: ONDANSETRON *ODT* 4 MG TABLET SL PRN (15:40)
[2018-12-22] MEDS ORDERED: MENTHOL/PHENOL 1 EACH UD MM PRN (15:40)
[2018-12-22] MEDS ORDERED: BISMUTH SUBSALICYLATE 524 MG/30 ML UD PO PRN (15:40)
[2018-12-22] MEDS ORDERED: cloNIDine HCL 0.1 MG TABLET PO PRN (15:51)
[2018-12-22] MEDS ORDERED: METHADONE HCL 10 MG TABLET (FOR DETOX USE ONLY) PO ONE ×2 (17:00→23:00)
[2018-12-22] MEDS: NICOTINE 21 MG/24 HOURS TOPICAL PATCH TD SCH (17:34)
[2018-12-22] MEDS: chlordiazePOXIDE HCL 25 MG CAPSULE PO SCH ×2 (17:34→22:22)
[2018-12-22] MEDS: THIAMINE HCL 100 MG TABLET (FP) PO SCH (22:21)
[2018-12-22] MEDS: MELATONIN 5 MG TABLETS PO PRN (22:22)
[2018-12-23] MEDS: chlordiazePOXIDE HCL 25 MG CAPSULE PO SCH ×4 (05:49→22:18)
[2018-12-23] MEDS ORDERED: METHADONE HCL 10 MG TABLET (FOR DETOX USE ONLY) PO ONE (10:00)
[2018-12-23] MEDS: NICOTINE 21 MG/24 HOURS TOPICAL PATCH TD SCH (10:30)
[2018-12-23] MEDS: PRENATAL VITAMINS W/ FOLIC ACID TABLET (FP) PO SCH (10:32)
--- NOTE | 2018-12-23 11:43 | PN ---
[facility] CIWA - CIWA Score Nausea/Vomitin-No Nausea/No Vomiting Muscle Tremors: 2 Anxiety: 2 Agitation: 2 Paroxysmal Sweats: 1-Minimal Palms Moist Orientation: 2-Disoriented Date<2 days Tacttile Disturbances: 0-None Auditory Disturbances: 0-None Visual Disturbances: 0-None Headache: 1-Very Mild CIWA-Ar Total Score: 10 S COWS - Scale Resting Pulse: 0= [place] 80 or Below Sweatin= Chills/Flushing Restless Observation: 0= Sits Still Pupil Size: 0= Normal to Room Light Bone or Joint Aches: 1= Mild Discomfort Runny Nose/ Eye Tearin= Nasal Congestion GI Upset > 30mins: 1= Stomach Cramp Tremor Observation of Outstretched Hands: 1= Tremor [place], Not Seen Yawning Observation: 2= >3x During Session Anxiety or Irritability: 1=Feels Anxious/Irritable Goose Flesh Skin: 0=Smooth Skin COWS Score: 8 S Progress Note (SOAP) Subjective: patient was admitted few weeks ago had admission lab done not necessary repeat lab at this time reporting mils body aches and tremor poor appetite ensure bid Objective: 12/23/18 11:42 Vital Signs Temperature 98.6 F 12/23/18 10:19 Pulse Rate 70 12/23/18 10:19 Respiratory Rate 20 12/23/18 10:19 Blood Pressure 127/86 12/23/18 10:19 O2 Sat by Pulse Oximetry (%) Laboratory Last Values HIV 1&2 Antibody Screen Negative 12/22/18 13:50 HIV P24 Antigen Negative 12/22/18 13:50 see lab 11/2018 Assessment: 12/23/18 11:43 withdrawal sx Plan: continue detox
--- NOTE | 2018-12-23 16:08 | CONSULT ---
[facility] Psychiatric Consult - Data Date of interview: 12/23/18 Admission source: [facility] Identifying data: Readmission to [facility] for this 48 y/o male self- referred for detoxification (cocaine, heroin, alcohol). Patient is single without dependents, homeless, unemployed and supported on SSI benefits. Substance Abuse History: Smoking history: Current every day smoker. Have you smoked in the past 12 months: Yes. Aproximately how many cigarettes per day: 20. Cigars Per Day: 0. Hx Chewing Tobacco Use: No. Initiated information on smoking cessation: Yes. 'Breaking Loose' booklet given: 12/22/18. - Substance & Tx. History. Hx Alcohol Use: Yes. Hx Substance Use: Yes. Substance Use Type : Alcohol, Cocaine, Heroin. Hx Substance Use Treatment: Yes (LAST TX AT [facility] DETOX). - Substances Abused. Heroin. Route: Injection. Frequency: Daily. Amount used: 7 BAGS. Age of first use: 16. Date of Last Use: 12/21/18. Alcohol. Route: Oral. Frequency: Daily. Amount used: 1 PINT VODKA. Age of first use: 16. Date of Last Use: 12/22/18. Cocaine. Route: Injection. Frequency: Daily. Amount used: $20. Age of first use: 19. Date of Last Use: 12/19/18 Medical History: Hepatitis C (diagnosed in 2012) + history of orthosurgery ( partial amputation of second toe of left foot). No known allergies. Psychiatric History: Diagnosed with Paranoid Schizophrenia. Onset of psychiatric illness : age 9. Patient admits to a history of multiple psychiatric hospitalizations ([facility], [facility] , [facility], [facility], [facility]). Mr Mendez continues to endorse chronic non-adherence to psychotropic medications (sertraline 100 mg/day + seroquel 100 mg/hs + risperdal 2 mg bid). Last prescribed at [facility]. No contact with [facility]PD psychiatric care providers. Patient states that he uses [facility]PE[facility] settings for medications refills. No reported history of suicide attempts. Physical/Sexual Abuse/Trauma History: Patient denies. Additional Comment: Urine Drug Screen Results: BRENDEN-Cocaine, OPI-Opiates, BAR- Barbiturates, MTD-Methadone, OXY-Oxycodone, FEN-Fentanyl. Noted. Mental Status Exam - Mental Status Exam Alert and Oriented to: Time, Place, Person Cognitive Function: Good Patient Appearance: Well Groomed Mood: Withdrawn, Anxious Affect: Mood Congruent, Constricted Patient Behavior: Fatigued, Cooperative Speech Pattern: Clear Voice Loudness: Normal Thought Process: Goal Oriented Thought Disorder: Not Present Hallucinations: Denies Suicidal Ideation: Denies Homicidal Ideation: Denies Insight/Judgement: Poor Sleep: Poorly, Difficulty falling asleep Appetite: Good Muscle strength/Tone: Normal Gait/Station: Other (not observed ; in bed for entire interview) Psychiatric Findings - Problem List ([place] 1, 2,3) (1) Alcohol dependence with uncomplicated withdrawal Current Visit: Yes Status: Acute (2) Opioid dependence with withdrawal Current Visit: Yes Status: Acute (3) Cocaine dependence Current Visit: Yes Status: Chronic Qualifiers: Substance use status: uncomplicated Qualified Code(s): F14.20 - Cocaine dependence, uncomplicated (4) Nicotine dependence Current Visit: Yes Status: Chronic (5) Substance induced mood disorder Current Visit: Yes Status: Chronic (6) Paranoid schizophrenia Current Visit: Yes Status: Chronic Comment: By history. Asymptomatic. (7) Insomnia Current Visit: Yes Status: Chronic (8) Non-compliance Current Visit: Yes Status: Chronic - Initial Treatment Plan Initial Treatment Plan: Psychoeducation. Sleep hygiene. Detoxification. Medications : risperdal 1 mg po bid + zoloft 100 mg po daily + seroquel 50 mg po hs. Side effects/benefits of each medication are discussed with the patient. Mr Mendez agrees to this plan of care. Verbal consent. Observation. Pharmacy claims (11/2018 + 12/18/18) at various pharmacies : reviewed.
[2018-12-23] MEDS: THIAMINE HCL 100 MG TABLET (FP) PO SCH (22:18)
[2018-12-23] MEDS: MELATONIN 5 MG TABLETS PO PRN (22:18)
[2018-12-23] MEDS: risperiDONE 1 MG TABLET (FP) PO SCH (22:18)
[2018-12-23] MEDS: QUEtiapine FUMARATE 50 MG TABLET PO SCH (22:18)
[2018-12-24] MEDS: chlordiazePOXIDE HCL 25 MG CAPSULE PO SCH ×2 (05:26→10:42)
[2018-12-24] MEDS ORDERED: METHADONE HCL 10 MG TABLET (FOR DETOX USE ONLY) PO ONE (10:00)
[2018-12-24] MEDS: PRENATAL VITAMINS W/ FOLIC ACID TABLET (FP) PO SCH (10:42)
[2018-12-24] MEDS: NICOTINE 21 MG/24 HOURS TOPICAL PATCH TD SCH (10:43)
[2018-12-24] MEDS: SERTRALINE HCL 50 MG TABLET (FP) PO SCH (10:44)
[2018-12-24] MEDS: risperiDONE 1 MG TABLET (FP) PO SCH ×2 (10:44→22:18)
[2018-12-24 11:14] LABS: HEMATOCRIT 35.8 % (35.4-49); HEMOGLOBIN 12.1 GM/dL (11.7-16.9); MCH 30.5 pg (25.7-33.7); MCHC 33.9 g/dl (32.0-35.9); MEAN CELL VOLUME 89.9 fl (80-96); MEAN PLT VOLUME 10.1 fl (7.5-11.1); PLATELET COUNT 188 K/MM3 (134-434); RBC 3.98 M/mm3 (4.00-5.60); RDW 14.7 % (11.9-15.9); WHITE BLOOD COUNT 6.4 K/mm3 (4.0-10.0)
[2018-12-24 11:29] LABS: ALBUMIN 3.4 g/dl (3.4-5.0); ALK PHOS 119 U/L (45-117); ANION GAP 6 MMOL/L (8-16); BILIRUBIN,TOTAL 0.3 mg/dL (0.2-1); BLOOD UREA NITROGEN 9 mg/dL (7-18); CALCIUM 8.5 mg/dL (8.5-10.1); CHLORIDE 104 mmol/L (98-107); CO2 27 mmol/L (21-32); CREATININE 0.7 mg/dL (0.55-1.3); GLUCOSE,RANDOM 114 mg/dL (74-106); SGOT/AST 126 U/L (15-37); SGPT/ALT 133 U/L (13-61); SODIUM 136 mmol/L (136-145)
[2018-12-24] MEDS ORDERED: INSULIN SLIDING SCALE (NOVOLOG) 1 VIAL SQ ONE (11:47)
--- NOTE | 2018-12-24 13:39 | PN ---
[facility] CIWA - CIWA Score Nausea/Vomitin-No Nausea/No Vomiting Muscle Tremors: 2 Anxiety: 1-Mildly Anxious Agitation: 2 Paroxysmal Sweats: 1-Minimal Palms Moist Orientation: 2-Disoriented Date<2 days Tacttile Disturbances: 0-None Auditory Disturbances: 0-None Visual Disturbances: 0-None Headache: 1-Very Mild CIWA-Ar Total Score: 9 S COWS - Scale Resting Pulse: 0= [place] 80 or Below Sweatin= Chills/Flushing Restless Observation: 0= Sits Still Pupil Size: 0= Normal to Room Light Bone or Joint Aches: 1= Mild Discomfort Runny Nose/ Eye Tearin= Nasal Congestion GI Upset > 30mins: 1= Stomach Cramp Tremor Observation of Outstretched Hands: 1= Tremor [place], Not Seen Yawning Observation: 1= 1-2x During Session Anxiety or Irritability: 1=Feels Anxious/Irritable Goose Flesh Skin: 0=Smooth Skin COWS Score: 7 [facility] Progress Note (SOAP) Subjective: reporting doing well social with peers in day room better energy level to do things and consider aftercare Objective: 12/24/18 13:37 Vital Signs Temperature 99.5 F 12/24/18 13:26 Pulse Rate 98 H 12/24/18 13:26 Respiratory Rate 18 12/24/18 13:26 Blood Pressure 127/81 12/24/18 13:26 O2 Sat by Pulse Oximetry (%) Laboratory Last Values WBC 6.4 K/mm3 (4.0-10.0) 12/24/18 07:30 RBC 3.98 M/mm3 (4.00-5.60) L 12/24/18 07:30 Hgb 12.1 GM/dL (11.7-16.9) 12/24/18 07:30 Hct 35.8 % (35.4-49) 12/24/18 07:30 MCV 89.9 fl (80-96) 12/24/18 07:30 MCH 30.5 pg (25.7-33.7) 12/24/18 07:30 MCHC 33.9 g/dl (32.0-35.9) 12/24/18 07:30 RDW 14.7 % (11.9-15.9) 12/24/18 07:30 Plt Count 188 K/MM3 (134-434) 12/24/18 07:30 MPV 10.1 fl (7.5-11.1) 12/24/18 07:30 Sodium 136 mmol/L (136-145) 12/24/18 07:30 Potassium 4.0 mmol/L (3.5-5.1) 12/24/18 07:30 Chloride 104 mmol/L (98-107) 12/24/18 07:30 Carbon Dioxide 27 mmol/L (21-32) 12/24/18 07:30 Anion Gap 6 MMOL/L (8-16) L 12/24/18 07:30 BUN 9 mg/dL (7-18) 12/24/18 07:30 Creatinine 0.7 mg/dL (0.55-1.3) 12/24/18 07:30 Creat Clearance w eGFR 119.37 (>60) 12/24/18 07:30 Random Glucose 114 mg/dL (74-106) H 12/24/18 07:30 Calcium 8.5 mg/dL (8.5-10.1) 12/24/18 07:30 Total Bilirubin 0.3 mg/dL (0.2-1) 12/24/18 07:30 AST 126 U/L (15-37) H 12/24/18 07:30 ALT 133 U/L (13-61) H 12/24/18 07:30 Alkaline Phosphatase 119 U/L (45-117) H 12/24/18 07:30 Total Protein 7.0 g/dl (6.4-8.2) 12/24/18 07:30 Albumin 3.4 g/dl (3.4-5.0) 12/24/18 07:30 HIV 1&2 Antibody Screen Negative 12/22/18 13:50 HIV P24 Antigen Negative 12/22/18 13:50 lab noted Assessment: 12/24/18 13:38 withdrawal sx Plan: continue detox repeat ast
[2018-12-24] MEDS ORDERED: chlordiazePOXIDE HCL 10 MG CAPSULE PO PRN (17:00)
[2018-12-24] MEDS: chlordiazePOXIDE HCL 10 MG CAPSULE PO SCH ×2 (17:32→22:18)
[2018-12-24] MEDS: THIAMINE HCL 100 MG TABLET (FP) PO SCH (22:18)
[2018-12-24] MEDS: QUEtiapine FUMARATE 50 MG TABLET PO SCH (22:18)
[2018-12-24] MEDS: MELATONIN 5 MG TABLETS PO PRN (22:19)
[2018-12-25] MEDS: chlordiazePOXIDE HCL 10 MG CAPSULE PO SCH ×2 (05:33→10:07)
[2018-12-25] MEDS ORDERED: METHADONE HCL 10 MG TABLET (FOR DETOX USE ONLY) PO ONE (10:00)
[2018-12-25] MEDS: NICOTINE 21 MG/24 HOURS TOPICAL PATCH TD SCH (10:06)
[2018-12-25] MEDS: risperiDONE 1 MG TABLET (FP) PO SCH (10:06)
[2018-12-25] MEDS: SERTRALINE HCL 50 MG TABLET (FP) PO SCH (10:06)
[2018-12-25] MEDS: PRENATAL VITAMINS W/ FOLIC ACID TABLET (FP) PO SCH (10:06)
[2018-12-25 13:51] VITALS: BP 115/77; PULSE 95; TEMP 98.3
--- NOTE | 2018-12-25 16:39 | PN ---
[facility] Progress Note (SOAP) Subjective: Patient denies current Withdrawal / Detox symptoms and reports that he feels well overall. Objective: PATIENT A & O X 3, OBSERVED AMBULATING ON UNIT. IN NO ACUTE DISTRESS. 12/25/18 16:36 Vital Signs Temperature 98.3 F 12/25/18 13:50 Pulse Rate 95 H 12/25/18 13:50 Respiratory Rate 18 12/25/18 13:50 Blood Pressure 115/77 12/25/18 13:50 O2 Sat by Pulse Oximetry (%) Laboratory Tests 12/22/18 12/24/18 12/24/18 13:50 07:30 07:30 WBC 6.4 RBC 3.98 L Hgb 12.1 Hct 35.8 MCV 89.9 MCH 30.5 MCHC 33.9 RDW 14.7 Plt Count 188 MPV 10.1 Sodium 136 Potassium 4.0 Chloride 104 Carbon Dioxide 27 Anion Gap 6 L BUN 9 Creatinine 0.7 Creat Clearance w eGFR 119.37 Random Glucose 114 H Calcium 8.5 Total Bilirubin 0.3 AST 126 H ALT 133 H Alkaline Phosphatase 119 H Total Protein 7.0 Albumin 3.4 HIV 1&2 Antibody Screen Negative HIV P24 Antigen Negative 12/25/18 07:00 WBC RBC Hgb Hct MCV MCH MCHC RDW Plt Count MPV Sodium Potassium Chloride Carbon Dioxide Anion Gap BUN Creatinine Creat Clearance w eGFR Random Glucose Calcium Total Bilirubin AST 420 H ALT Alkaline Phosphatase Total Protein Albumin HIV 1&2 Antibody Screen HIV P24 Antigen LABS NOTED. RESULT OF REPEAT AST LEVEL NOTED. PATIENT REPORTS HISTORY OF HEP C (TREATED IN PAST). PATIENT REPORTS THAT HE DOES NOT CURRENTLY HAVE A OUTPATIENT SCHEDULER. PATIENT ADVISED TO OBTAIN ONE SOON POSSIBLE AT [facility] ( [place], [place]) FOR FURTHER EVALUATION OF THIS RESULT. 12/25/18 16:37 Assessment: 12/25/18 16:36 COMPLETION OF DETOX REGIMEN. Plan: SINCE PATIENT DENIES CURRENT WITHDRAWAL / DETOX SYMPTOMS AND REPORTS THAT HE FEELS WELL OVERALL, PATIENT GRANTED AN EARLY DISCHARGE FROM DETOX UNIT TODAY.
--- NOTE | 2018-12-25 16:40 | DS ---
[facility] Detox Discharge Summary Admission Date: 12/22/18 Discharge Date: 12/25/18 - History Present History: Alcohol Dependence, Cocaine Dependence Additional Comments: PATIENT DENIES CURRENT WITHDRAWAL / DETOX SYMPTOMS AND REPORTS THAT HE FEELS WELL OVERALL AT TIME OF DISCHARGE FROM DETOX UNIT. PATIENT IS GOING HOME FOR TIME BEING TO ATTEND TO SOME PERSONAL ISSUES, THEN WILL PURSUE REHAB ADMISSION ON HIS OWN IN THE NEXT FEW DAYS. 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 PATIENT ADVISED TO OBTAIN ONE SOON POSSIBLE AT [facility] ( [place], [place]) FOR FURTHER EVALUATION OF ELEVATED ADMISSION AND REPEAT AST RESULT NOTED WHILE ADMITTED FOR DETOX. PATIENT VERBALIZED UNDERSTANDING OF RECOMMENDATION. COPIES OF RESULTS OF ALL LABS DRAWN WHILE ADMITTED FOR DETOX GIVEN TO PATIENT AT TIME OF DISCHARGE FROM DETOX UNIT. PATIENT WAS DISCHARGED FROM DETOX UNIT IN STABLE MEDICAL CONDITION. Pertinent Past History: History of Hep C (Treated), History of (Paranoid) Schizophrenia, Intravenous Drug User (I.V.D.U.), Nicotine Dependence, Insomnia. - Physical Exam Results Vital Signs: Vital Signs Temperature 98.3 F 12/25/18 13:50 Pulse Rate 95 H 12/25/18 13:50 Respiratory Rate 18 12/25/18 13:50 Blood Pressure 115/77 12/25/18 13:50 O2 Sat by Pulse Oximetry (%) Pertinent Admission Physical Exam Findings: WITHDRAWAL SYMPTOMS. Laboratory Tests 12/22/18 12/24/18 12/24/18 13:50 07:30 07:30 WBC 6.4 RBC 3.98 L Hgb 12.1 Hct 35.8 MCV 89.9 MCH 30.5 MCHC 33.9 RDW 14.7 Plt Count 188 MPV 10.1 Sodium 136 Potassium 4.0 Chloride 104 Carbon Dioxide 27 Anion Gap 6 L BUN 9 Creatinine 0.7 Creat Clearance w eGFR 119.37 Random Glucose 114 H Calcium 8.5 Total Bilirubin 0.3 AST 126 H ALT 133 H Alkaline Phosphatase 119 H Total Protein 7.0 Albumin 3.4 HIV 1&2 Antibody Screen Negative HIV P24 Antigen Negative 12/25/18 07:00 WBC RBC Hgb Hct MCV MCH MCHC RDW Plt Count MPV Sodium Potassium Chloride Carbon Dioxide Anion Gap BUN Creatinine Creat Clearance w eGFR Random Glucose Calcium Total Bilirubin AST 420 H ALT Alkaline Phosphatase Total Protein Albumin HIV 1&2 Antibody Screen HIV P24 Antigen LABS NOTED. - Treatment Hospital Course: Detox Protocol Followed, Detoxed Safely, Responded well, Discharged Condition Good Patient has Accepted a Rehab Referral to: PATIENT WILL PURSUE REHAB ADMISSION ON HIS OWN AT A LATER DATE. - Medication Discharge Medications: Ambulatory Orders Risperidone [Risperdal -] 2 mg PO BID #60 tablet 09/17/17 Quetiapine Fumarate [Seroquel -] 300 mg PO HS 10/12/18 Sertraline HCl [Zoloft] 100 mg PO DAILY #30 tablet 10/16/18 - Diagnosis (1) Alcohol dependence with uncomplicated withdrawal Status: Acute (2) Elevated aspartate aminotransferase level Status: Acute (3) Nicotine dependence Status: Acute Qualifiers: Nicotine product type: cigarettes Substance use status: in withdrawal Qualified Code(s): F17.213 - Nicotine dependence, cigarettes, with withdrawal (4) Opioid dependence with withdrawal Status: Acute (5) Hepatitis C Status: Chronic Qualifiers: Viral hepatitis chronicity: chronic Hepatic coma status: without hepatic coma Qualified Code(s): B18.2 - Chronic viral hepatitis C (6) IVDU (intravenous drug user) Status: Chronic (7) Cocaine dependence Status: Chronic Qualifiers: Substance use status: uncomplicated Qualified Code(s): F14.20 - Cocaine dependence, uncomplicated (8) Insomnia Status: Chronic Qualifiers: Insomnia type: unspecified Qualified Code(s): G47.00 - Insomnia, unspecified (9) Non-compliance Status: Chronic (10) Paranoid schizophrenia Status: Chronic (11) Substance induced mood disorder Status: Chronic - AMA Did Patient Leave Against Medical Advice: No
[2018-12-25] MEDS ORDERED: chlordiazePOXIDE HCL 10 MG CAPSULE PO SCH (17:00)
[2018-12-26] MEDS ORDERED: METHADONE HCL 5 MG TABLET (FOR DETOX USE ONLY) PO ONE (06:00)
== END 2018-12-25 15:00 | disposition home or self-care (01) | DRG 773 ==
LOC: YASAS 10:56 → Y3N 16:14
PROVIDERS: ADMIT Surgery; ATTEND Surgery
PROC: HZ2ZZZZ Detoxification Services for Substance Abuse Treatment (ICD-10-PCS; principal; 2018-12-22)
DX: F11.23 Opioid dependence with withdrawal (principal); F10.230 Alcohol dependence with withdrawal, uncomplicated; F14.20 Cocaine dependence, uncomplicated; F17.213 Nicotine dependence, cigarettes, with withdrawal; F20.0 Paranoid schizophrenia; F19.24 Other psychoactive substance dependence with psychoactive substance-induced mood disorder; G47.00 Insomnia, unspecified; R79.89 Other specified abnormal findings of blood chemistry; Z86.19 Personal history of other infectious and parasitic diseases; Z91.5 Personal history of self-harm; Z89.412 Acquired absence of left great toe; Z91.19 Patient's noncompliance with other medical treatment and regimen
CPT/HCPCS: 36415; 80053; 84450; 85027; 87389; J2794

== ENCOUNTER 2019-09-14 09:51 | Inpatient (IN) | payer OTHER ==
[2019-09-14 10:26] VITALS: BMI 27.8
--- NOTE | 2019-09-14 11:37 | HP ---
CIWA Score Nausea/Vomitin-Mild Nausea/No Vomiting Muscle Tremors: 1-None Visible, but [place] Anxiety: 3 Agitation: 3 Paroxysmal Sweats: 2 Orientation: 0-Oriented Tacttile Disturbances: 0-None Auditory Disturbances: 0-None Visual Disturbances: 0-None Headache: 2-Mild CIWA-Ar Total Score: 12 - Admission Criteria OASAS Guidelines: Admission for Medically Managed Detox: Requires at least one of the followin. CIWA greater than 12 2. Seizures within the past 24 hours 3. Delirium tremens within the past 24 hours 4. Hallucinations within the past 24 hours 5. Acute intervention needed for co occurring medical disorder 6. Acute intervention needed for co occurring psychiatric disorder 7. Severe withdrawal that cannot be handled at a lower level of care (continued vomiting, continued diarrhea, abnormal vital signs) requiring intravenous medication and/or fluids 8. Admitting History and Physical - Smoking History Smoking history: Current every day smoker Have you smoked in the past 12 months: Yes Aproximately how many cigarettes per day: 20 - Alcohol/Substance Use Hx Alcohol Use: Yes Admission ROS [facility] Allergies/Adverse Reactions: Allergies Allergy/AdvReac Type Severity Reaction Status Date / Time No Known Allergies Allergy Verified 12/22/18 13:22 History of Present Illness: patient here requesting detox from etoh use , reports 15-20 cans x 16 oz beers daily and 1-3 pint/day x 1 years , reports tremors if not drinking , denies blackouts or seizures , +occasional falls while intoxicated most recently yesterday , denies injuries . First age of use 16 . States was at [facility] 14 str for left 2nd toe amputation 2/2 OM , on ABx since . heroin use : on Bup per pt @ [facility] , rx as below claims has monthly rx prior IV heroin since age 16 then claims "I also get monthly shots of Vivitrol, I am due on the " @ [facility] cocaine use : 20$ /day ivdu since age 16 bup : reports use 2 days ago tobacco : 1 ppd PMHX : left foot s/p toe amputation , states had f/up @ [facility] and is planning to return PSHx : denies Psych : SAD , depression Meds : see list SHX : fdc, unemployed denies current legal issues . This report was requested by: Ann Muñoz | Reference #: [id number] Others' Prescriptions Patient Name: Wilfredo Mendez Date: 1970 Address: [address] [place] [address] Sex: Male Rx Written Rx Dispensed Drug Quantity Days Supply Prescriber Name 12/30/2018 12/31/2018 buprenorphine-naloxone 8-2 mg sl film 14 7 Koffi Alberts MD Patient Name: Wilfredo Mendez Date: 1970 Address: [address] [place] [id number] Sex: Male Rx Written Rx Dispensed Drug Quantity Days Supply Prescriber Name 10/19/2018 10/19/2018 buprenorphine-naloxone 8-2 mg sl tablet 45 15 Valdemar Arroyo MD Exam Limitations: Clinical Condition - Ebola screening Have you traveled outside of the country in the last 21 days: No Have you had contact with anyone from an Ebola affected area: No Do you have a fever: No - Review of Systems Constitutional: Loss of Appetite EENT: reports: No Symptoms Reported Respiratory: reports: No Symptoms reported Cardiac: reports: No Symptoms Reported GI: reports: Diarrhea, Nausea : reports: No Symptoms Reported Musculoskeletal: reports: See HPI Integumentary: reports: See HPI Neuro: reports: Headache Endocrine: reports: No Symptoms Reported Psychiatric: reports: Orientated x3, Agitated Patient History - Patient Medical History Hx Anemia: No Hx Asthma: No Hx Chronic Obstructive Pulmonary Disease (COPD): No Hx Cancer: No Hx Cardiac Disorders: No Hx Congestive Heart Failure: No Hx Hypertension: No Hx Hypercholesterolemia: No Hx Pacemaker: No HX Cerebrovascular Accident: No Hx Seizures: No Hx Dementia: No Hx Diabetes: No Hx Gastrointestinal Disorders: No Hx Liver Disease: No Hx Genitourinary Disorders: No Hx Sexually Transmitted Disorders: No (DENIES) Hx Renal Disease (ESRD): No Hx Thyroid Disease: No Hx Human Immunodeficiency Virus (HIV): No (DENIES) Hx Hepatitis C: Yes (diagnosed last yr 2012 -treated) Hx Depression: No Hx Suicide Attempt: Yes (Tried to hang himself at age 23 yrs old:DENIES CURRENT S/H/I) Hx Bipolar Disorder: No Hx Schizophrenia: Yes (ON MEDS-SEROQUEL,ZOLOFT,RESPIRADAL) - Patient Surgical History Past Surgical History: Yes Hx Neurologic Surgery: No Hx Cataract Extraction: No Hx Cardiac Surgery: No Hx Lung Surgery: No Hx Breast Surgery: No Hx Breast Biopsy: No Hx Abdominal Surgery: No Hx Appendectomy: No Hx Cholecystectomy: No Hx Genitourinary Surgery: No Hx Section: No Hx Orthopedic Surgery: No Other Surgical History: partial amputation left 2nd toe by great toe for osteomyletis Anesthesia Reaction: No - PPD History Date: 10/14/18 Results: 0mm - Smoking Cessation Smoking history: Current every day smoker Have you smoked in the past 12 months: Yes Aproximately how many cigarettes per day: 20 Cigars Per Day: 0 Hx Chewing Tobacco Use: No Initiated information on smoking cessation: Yes 'Breaking Loose' booklet given: 09/14/19 - Substances abused Alcohol Substance route: Oral Frequency: Daily Amount used: 15-20 16oz cans beer 3-4 pts vodka/day Age of first use: 16 Date of last use: 09/14/19 Cocaine Substance route: Injection Frequency: Daily Amount used: 10 bags/day Age of first use: 16 Date of last use: 09/14/19 Admission Physical Exam S - Vital Signs Vital Signs: Vital Signs - 24 hr 09/14/19 10:11 Temperature 99.3 F Pulse Rate 78 Respiratory 18 Rate Blood Pressure 142/88 - Physical General Appearance: Yes: Mild Distress, Irritable, Anxious HEENTM: Yes: EOMI, Hearing grossly Normal, Normocephalic, Normal Voice Respiratory: Yes: Chest Non-Tender, Lungs Clear, Normal Breath Sounds, No Respiratory Distress, No Accessory Muscle Use Neck: Yes: No masses,lesions,Nodules, Trachea in good position Cardiology: Yes: Regular Rhythm, Regular Rate, S1, S2 Abdominal: Yes: Non Tender, Soft Back: Yes: Normal Inspection Musculoskeletal: Yes: Other (limping left) Extremities: Yes: Other (left 2nd toe absent w/ sutures @ [facility] 2/ 2 wound) Neurological: Yes: Fully Oriented, Alert, Motor Strength 5/5, Depressed Affect Integumentary: Yes: Warm, Pitting Edema (edema left foot, left toe w/ sutures and superficial clear serous d/c . No tenderness to palpation.) - Diagnostic (1) Alcohol dependence with uncomplicated withdrawal Current Visit: Yes Status: Chronic (2) Nicotine dependence Current Visit: Yes Status: Chronic Qualifiers: Nicotine product type: cigarettes Breathalyzer - Breathalyzer Breathalyzer: 0.08 Urine Drug Screen - Test Device Lot number: [id number] - Control Is test valid?: Yes - Results Drug screen NEGATIVE: No Urine drug screen results: BRENDEN-Cocaine, BUP-Suboxone Inpatient Rehab Admission - Rehab Decision to Admit Inpatient rehab admission?: No
[2019-09-14] MEDS ORDERED: MAG HYDROX/AL HYDROX/SIMETH 30 ML UNIT-DOSE CUP PO PRN (11:45)
[2019-09-14] MEDS ORDERED: hydrOXYzine PAMOATE 25 MG CAPSULE (FP) PO PRN (11:45)
[2019-09-14] MEDS ORDERED: BISMUTH SUBSALICYLATE 262 MG/15 ML BTL PO PRN (11:45)
[2019-09-14] MEDS ORDERED: ACETAMINOPHEN 325 MG TABLET (FP) PO PRN ×2 (11:45)
[2019-09-14] MEDS ORDERED: METHOCARBAMOL 500 MG TABLET PO PRN (11:45)
[2019-09-14] MEDS ORDERED: IBUPROFEN 400 MG TABLET (FP) PO PRN (11:45)
[2019-09-14] MEDS ORDERED: MENTHOL/PHENOL 1 EACH UD MM PRN (11:45)
[2019-09-14] MEDS: diazePAM 5 MG TABLET PO SCH ×2 (14:20→22:23)
[2019-09-14] MEDS: DOXYCYCLINE HYCLATE 100 MG TABLET PO SCH ×2 (14:51→17:46)
[2019-09-14 15:43] LABS: HEMATOCRIT 28.5 % (35.4-49); MCH 28.9 pg (25.7-33.7); MCHC 31.7 g/dl (32.0-35.9); MEAN CELL VOLUME 91.1 fl (80-96); MEAN PLT VOLUME 8.4 fl (7.5-11.1); PLATELET COUNT 356 K/MM3 (134-434); RBC 3.13 M/mm3 (4.00-5.60); RDW 16.2 % (11.9-15.9); WHITE BLOOD COUNT 9.4 K/mm3 (4.0-10.0)
--- NOTE | 2019-09-14 15:49 | PN ---
[facility] Progress Note Note: patient arrived 3n detox unit demands suboxone from nurses demands the provider to call his pharmacy according to admission provider that the patient is no longer taking suboxone patient is taking vivitrol IM monthly next IM 09/21/19
[2019-09-14 15:54] LABS: ALBUMIN 3.8 g/dl (3.4-5.0); BILIRUBIN,TOTAL 0.6 mg/dL (0.2-1); BLOOD UREA NITROGEN 12.8 mg/dL (7-18); CALCIUM 9.1 mg/dL (8.5-10.1); CREATININE 0.7 mg/dL (0.55-1.3); POTASSIUM 3.9 mmol/L (3.5-5.1); TOT PROT 8.1 g/dl (6.4-8.2)
[2019-09-14] MEDS: diazePAM 5 MG TABLET PO PRN (17:46)
[2019-09-14] MEDS: THIAMINE HCL 100 MG TABLET (FP) PO SCH (22:23)
[2019-09-14] MEDS: MELATONIN 5 MG TABLETS PO PRN (22:23)
[2019-09-15] MEDS: diazePAM 5 MG TABLET PO SCH ×3 (06:04→22:06)
[2019-09-15] MEDS: diazePAM 5 MG TABLET PO PRN ×2 (08:32→17:57)
[2019-09-15] MEDS: DOXYCYCLINE HYCLATE 100 MG TABLET PO SCH ×2 (09:46→17:58)
--- NOTE | 2019-09-15 09:46 | PN ---
S CIWA - CIWA Score Nausea/Vomitin-Mild Nausea/No Vomiting Muscle Tremors: 2 Anxiety: 2 Agitation: 1-Slight > Activity Paroxysmal Sweats: 1-Minimal Palms Moist Orientation: 0-Oriented Tacttile Disturbances: 0-None Auditory Disturbances: 0-None Visual Disturbances: 0-None Headache: 2-Mild CIWA-Ar Total Score: 9 S Progress Note (SOAP) Subjective: 49 years old male admitted on 09/14/19 for alcohol withdrawal sx management treated with valium detox regimen left 2nd toe dressing intact patient ate breakfast resting on bed feeling tired strong recommend the patient to attend detox meetings and groups as behavior and psychosocial therapies patient will received vivitrol IM on 09/21/19 Objective: 09/15/19 09:43 Vital Signs Temperature 96.7 F L 09/15/19 09:18 Pulse Rate 75 09/15/19 09:18 Respiratory Rate 18 09/15/19 09:18 Blood Pressure 105/66 09/15/19 09:18 O2 Sat by Pulse Oximetry (%) Laboratory Last Values WBC 9.4 K/mm3 (4.0-10.0) 09/14/19 12:05 RBC 3.13 M/mm3 (4.00-5.60) L 09/14/19 12:05 Hgb 9.0 GM/dL (11.7-16.9) L 09/14/19 12:05 Hct 28.5 % (35.4-49) L D 09/14/19 12:05 MCV 91.1 fl (80-96) 09/14/19 12:05 MCH 28.9 pg (25.7-33.7) 09/14/19 12:05 MCHC 31.7 g/dl (32.0-35.9) L 09/14/19 12:05 RDW 16.2 % (11.9-15.9) H 09/14/19 12:05 Plt Count 356 K/MM3 (134-434) D 09/14/19 12:05 MPV 8.4 fl (7.5-11.1) D 09/14/19 12:05 Sodium 135 mmol/L (136-145) L 09/14/19 12:05 Potassium 3.9 mmol/L (3.5-5.1) 09/14/19 12:05 Chloride 101 mmol/L (98-107) 09/14/19 12:05 Carbon Dioxide 26 mmol/L (21-32) 09/14/19 12:05 Anion Gap 8 MMOL/L (8-16) 09/14/19 12:05 BUN 12.8 mg/dL (7-18) 09/14/19 12:05 Creatinine 0.7 mg/dL (0.55-1.3) 09/14/19 12:05 Est GFR (CKD-EPI)AfAm 126.64 09/14/19 12:05 Est GFR (CKD-EPI)NonAf 109.27 09/14/19 12:05 Random Glucose 100 mg/dL (74-106) 09/14/19 12:05 Calcium 9.1 mg/dL (8.5-10.1) 09/14/19 12:05 Total Bilirubin 0.6 mg/dL (0.2-1) 09/14/19 12:05 AST 43 U/L (15-37) H 09/14/19 12:05 ALT 32 U/L (13-61) 09/14/19 12:05 Alkaline Phosphatase 81 U/L (45-117) 09/14/19 12:05 Total Protein 8.1 g/dl (6.4-8.2) 09/14/19 12:05 Albumin 3.8 g/dl (3.4-5.0) 09/14/19 12:05 lab noted low hgb begin ferrous sulfate 09/15/19 09:46 scheduled apart from doxycycline Assessment: 09/15/19 09:47 alcohol withdrawal Plan: valium regimen
--- NOTE | 2019-09-15 13:01 | CONSULT ---
[facility] Psychiatric Consult - Data Date of interview: 09/15/19 Admission source: [facility] Identifying data: Patient is a 49 year old single male, without children, unemployed, homeless, and is supported by [facility]. This is one of multiple admissions for patient. Patient admitted to for alcohol and cocaine dependence. Substance Abuse History: - Smoking Cessation. Smoking history: Current every day smoker. Have you smoked in the past 12 months: Yes. Aproximately how many cigarettes per day: 20. Cigars Per Day: 0. Hx Chewing Tobacco Use: No. Initiated information on smoking cessation: Yes. 'Breaking Loose' booklet given : 09/14/19. - Substances abused. Alcohol. Substance route: Oral. Frequency: Daily. Amount used: 15-20 16oz cans beer 3-4 pts vodka/day. Age of first use: 16. Date of last use: 09/14/19. Cocaine. Substance route: Injection. Frequency: Daily. Amount used: 10 bags/day. Age of first use: 16. Date of last use: 09/14/19 Medical History: Consistent with hepatitis C (diagnosed in 2012) + history of orthosurgery (partial amputation of second toe of left foot Psychiatric History: Mr. Mendez's first psychiatric contact was at 9 years of age after he jumped out from a window located on the 5th floor. States he was hospitalized at [facility] and prescribed psychotropic medications. Mr. Mendez reports history of multiple psychiatric hospitalizations ([facility], [facility], [facility], [facility], [facility]). Reports diagnosis of bipolar disorder and schizophrenia. Reports receiving risperdal 2mg BID + Zoloft 100mg + seroquel 100mg from his PCP at [facility]. Has also received psychotropic medications from various emergency rooms in [facility]. Mr. Mendez reports history of multiple suicide attempts via overdose and cutting self. At present patient is irritable but in good control. Patient denies thoughts or urges to hurt self or others. Physical/Sexual Abuse/Trauma History: denies. Mental Status Exam - Mental Status Exam Alert and Oriented to: Time, Place, Person Cognitive Function: Good Patient Appearance: Well Groomed Mood: Irritable Affect: Mood Congruent Patient Behavior: Cooperative Speech Pattern: Appropriate Voice Loudness: Normal Thought Process: Goal Oriented Thought Disorder: Not Present Hallucinations: Denies Suicidal Ideation: Denies Homicidal Ideation: Denies Insight/Judgement: Poor Sleep: Poorly Appetite: Fair Muscle strength/Tone: Normal Gait/Station: Normal Psychiatric Findings - Problem List ([place] 1, 2,3) (1) Alcohol dependence with uncomplicated withdrawal Current Visit: Yes Status: Acute (2) Nicotine dependence Current Visit: Yes Status: Chronic Qualifiers: Nicotine product type: cigarettes (3) Substance-induced sleep disorder Current Visit: Yes Status: Acute (4) Cocaine dependence Current Visit: Yes Status: Chronic Qualifiers: Substance use status: uncomplicated Qualified Code(s): F14.20 - Cocaine dependence, uncomplicated (5) Substance induced mood disorder Current Visit: Yes Status: Chronic (6) Schizophrenia Current Visit: Yes Status: Chronic - Initial Treatment Plan Initial Treatment Plan: Psychoeducation provided. Rehab in progress. Will order Zoloft 100mg + Risperdal 1mg BID + Seroquel 50mg HS. Benefits and side effects discussed. Verbal consent given.
[2019-09-15] MEDS ORDERED: QUEtiapine FUMARATE 50 MG TABLET PO SCH (22:00)
[2019-09-15] MEDS ORDERED: FERROUS SO4 325 MG TABLET (FP) PO SCH (22:00)
[2019-09-15] MEDS ORDERED: risperiDONE 2 MG TABLET PO SCH (22:00)
[2019-09-15] MEDS: THIAMINE HCL 100 MG TABLET (FP) PO SCH (22:06)
[2019-09-15] MEDS: MELATONIN 5 MG TABLETS PO PRN (22:06)
[2019-09-15] MEDS: risperiDONE 1 MG TABLET (FP) PO SCH (22:06)
[2019-09-16] MEDS ORDERED: diazePAM 5 MG TABLET PO SCH (06:00)
[2019-09-16] MEDS: diazePAM 5 MG TABLET PO PRN ×2 (08:33→12:55)
[2019-09-16] MEDS: DOXYCYCLINE HYCLATE 100 MG TABLET PO SCH (09:59)
[2019-09-16] MEDS ORDERED: SERTRALINE HCL 50 MG TABLET (FP) PO SCH (10:00)
[2019-09-16] MEDS: risperiDONE 1 MG TABLET (FP) PO SCH (10:01)
--- NOTE | 2019-09-16 12:59 | PN ---
S CIWA - CIWA Score Nausea/Vomitin-No Nausea/No Vomiting Muscle Tremors: 1-None Visible, but [place] Anxiety: 2 Agitation: 0-Normal Activity Paroxysmal Sweats: 1-Minimal Palms Moist Orientation: 0-Oriented Tacttile Disturbances: 0-None Auditory Disturbances: 0-None Visual Disturbances: 0-None Headache: 0-None Present CIWA-Ar Total Score: 4 [facility] Progress Note (SOAP) Subjective: 49 years old male admitted on 09/14/19 for alcohol withdrawal sx management treating with valium detox regimen ate breakfast and lunch ambulating on hallway social with peers in day room self care independent patient agrees returning to orthopedic provider for follow up amputation of the right 2nd toe patient agrees returning to vivitrol provider on 09/21/19 for monthly IM as well as behavior and psychosocial therapies Objective: 09/16/19 12:59 Vital Signs Temperature 98.8 F 09/16/19 09:35 Pulse Rate 71 09/16/19 09:35 Respiratory Rate 18 09/16/19 09:35 Blood Pressure 104/65 09/16/19 09:35 O2 Sat by Pulse Oximetry (%) Laboratory Last Values WBC 9.4 K/mm3 (4.0-10.0) 09/14/19 12:05 RBC 3.13 M/mm3 (4.00-5.60) L 09/14/19 12:05 Hgb 9.0 GM/dL (11.7-16.9) L 09/14/19 12:05 Hct 28.5 % (35.4-49) L D 09/14/19 12:05 MCV 91.1 fl (80-96) 09/14/19 12:05 MCH 28.9 pg (25.7-33.7) 09/14/19 12:05 MCHC 31.7 g/dl (32.0-35.9) L 09/14/19 12:05 RDW 16.2 % (11.9-15.9) H 09/14/19 12:05 Plt Count 356 K/MM3 (134-434) D 09/14/19 12:05 MPV 8.4 fl (7.5-11.1) D 09/14/19 12:05 Sodium 135 mmol/L (136-145) L 09/14/19 12:05 Potassium 3.9 mmol/L (3.5-5.1) 09/14/19 12:05 Chloride 101 mmol/L (98-107) 09/14/19 12:05 Carbon Dioxide 26 mmol/L (21-32) 09/14/19 12:05 Anion Gap 8 MMOL/L (8-16) 09/14/19 12:05 BUN 12.8 mg/dL (7-18) 09/14/19 12:05 Creatinine 0.7 mg/dL (0.55-1.3) 09/14/19 12:05 Est GFR (CKD-EPI)AfAm 126.64 09/14/19 12:05 Est GFR (CKD-EPI)NonAf 109.27 09/14/19 12:05 Random Glucose 100 mg/dL (74-106) 09/14/19 12:05 Calcium 9.1 mg/dL (8.5-10.1) 09/14/19 12:05 Total Bilirubin 0.6 mg/dL (0.2-1) 09/14/19 12:05 AST 43 U/L (15-37) H 09/14/19 12:05 ALT 32 U/L (13-61) 09/14/19 12:05 Alkaline Phosphatase 81 U/L (45-117) 09/14/19 12:05 Total Protein 8.1 g/dl (6.4-8.2) 09/14/19 12:05 Albumin 3.8 g/dl (3.4-5.0) 09/14/19 12:05 RPR Titer Nonreactive (NONREACTIVE) 09/14/19 12:05 lab noted Assessment: 09/16/19 12:59 alcohol withdrawal Plan: valium regimen
[2019-09-16 13:45] VITALS: BP 115/70; PULSE 72; TEMP 97.6
--- NOTE | 2019-09-16 15:43 | DS ---
[facility] Detox Discharge Summary Admission Date: 09/14/19 Discharge Date: 09/16/19 - History Present History: Alcohol Dependence Additional Comments: 49 years old male admitted on 09/14/19 for alcohol withdrawal sx management treated with valium detox regimen patient is alert oriented x 3 ambulating steady gait speech clearly coherently patient insists to leave the detox unit that he needs to see orthopedic surgeon Pertinent Past History: case discuss with the nurse that the patient received valium prn around 1 pm against medical advice is appropriated - Physical Exam Results Vital Signs: Vital Signs Temperature 97.6 F 09/16/19 13:44 Pulse Rate 72 09/16/19 13:44 Respiratory Rate 18 09/16/19 13:44 Blood Pressure 115/70 09/16/19 13:44 O2 Sat by Pulse Oximetry (%) Pertinent Admission Physical Exam Findings: alcohol withdrawal sx Laboratory Last Values WBC 9.4 K/mm3 (4.0-10.0) 09/14/19 12:05 RBC 3.13 M/mm3 (4.00-5.60) L 09/14/19 12:05 Hgb 9.0 GM/dL (11.7-16.9) L 09/14/19 12:05 Hct 28.5 % (35.4-49) L D 09/14/19 12:05 MCV 91.1 fl (80-96) 09/14/19 12:05 MCH 28.9 pg (25.7-33.7) 09/14/19 12:05 MCHC 31.7 g/dl (32.0-35.9) L 09/14/19 12:05 RDW 16.2 % (11.9-15.9) H 09/14/19 12:05 Plt Count 356 K/MM3 (134-434) D 09/14/19 12:05 MPV 8.4 fl (7.5-11.1) D 09/14/19 12:05 Sodium 135 mmol/L (136-145) L 09/14/19 12:05 Potassium 3.9 mmol/L (3.5-5.1) 09/14/19 12:05 Chloride 101 mmol/L (98-107) 09/14/19 12:05 Carbon Dioxide 26 mmol/L (21-32) 09/14/19 12:05 Anion Gap 8 MMOL/L (8-16) 09/14/19 12:05 BUN 12.8 mg/dL (7-18) 09/14/19 12:05 Creatinine 0.7 mg/dL (0.55-1.3) 09/14/19 12:05 Est GFR (CKD-EPI)AfAm 126.64 09/14/19 12:05 Est GFR (CKD-EPI)NonAf 109.27 09/14/19 12:05 Random Glucose 100 mg/dL (74-106) 09/14/19 12:05 Calcium 9.1 mg/dL (8.5-10.1) 09/14/19 12:05 Total Bilirubin 0.6 mg/dL (0.2-1) 09/14/19 12:05 AST 43 U/L (15-37) H 09/14/19 12:05 ALT 32 U/L (13-61) 09/14/19 12:05 Alkaline Phosphatase 81 U/L (45-117) 09/14/19 12:05 Total Protein 8.1 g/dl (6.4-8.2) 09/14/19 12:05 Albumin 3.8 g/dl (3.4-5.0) 09/14/19 12:05 RPR Titer Nonreactive (NONREACTIVE) 09/14/19 12:05 lab noted - Treatment Hospital Course: Detox Protocol Followed Patient has Accepted [facility] Referral [facility] - Medication Discharge Medications: Ambulatory Orders Risperidone [Risperdal -] 2 mg PO BID #60 tablet 09/17/17 Quetiapine Fumarate [Seroquel -] 300 mg PO HS 10/12/18 Sertraline HCl [Zoloft] 100 mg PO DAILY #30 tablet 10/16/18 Doxycycline Hyclate 100 mg PO BID 09/14/19 Hydroxyzine HCl 25 mg PO HS 09/14/19 - Diagnosis (1) Alcohol dependence with uncomplicated withdrawal Status: Acute (2) Hepatitis C Status: Chronic Qualifiers: Viral hepatitis chronicity: chronic Hepatic coma status: without hepatic coma Qualified Code(s): B18.2 - Chronic viral hepatitis C (3) Nicotine dependence Status: Acute Qualifiers: Nicotine product type: cigarettes Substance use status: in withdrawal Qualified Code(s): F17.213 - Nicotine dependence, cigarettes, with withdrawal (4) Substance induced mood disorder Status: Suspected - AMA Did Patient Leave Against Medical Advice: Yes
[2019-09-17] MEDS ORDERED: diazePAM 5 MG TABLET PO ONE (06:00)
== END 2019-09-16 15:13 | disposition left against medical advice (07) | DRG 770 ==
LOC: YASAS 09:51 → Y3N 12:11
PROVIDERS: ADMIT Allergy & Immunology; ATTEND Allergy & Immunology
PROC: HZ2ZZZZ Detoxification Services for Substance Abuse Treatment (ICD-10-PCS; principal; 2019-09-14)
DX: F10.230 Alcohol dependence with withdrawal, uncomplicated (principal); F14.20 Cocaine dependence, uncomplicated; F17.210 Nicotine dependence, cigarettes, uncomplicated; F19.282 Other psychoactive substance dependence with psychoactive substance-induced sleep disorder; F19.24 Other psychoactive substance dependence with psychoactive substance-induced mood disorder; F20.9 Schizophrenia, unspecified; D64.9 Anemia, unspecified; B18.2 Chronic viral hepatitis C; R29.6 Repeated falls; Z89.422 Acquired absence of other left toe(s); Z86.19 Personal history of other infectious and parasitic diseases; Z91.5 Personal history of self-harm
CPT/HCPCS: 36415; 80053; 85027; 86593; J2794

== ENCOUNTER 2022-12-29 09:49 | Inpatient (IN) | payer OTHER ==
[2022-12-29 10:34] VITALS: BMI 24.3
[2022-12-29] MEDS ORDERED: NICOTINE 10 MG CARTRIDGE (INHALER) IH PRN (11:56)
[2022-12-29] MEDS ORDERED: ACETAMINOPHEN 325 MG TABLET (FP) PO PRN (11:56)
[2022-12-29] MEDS ORDERED: guaiFENesin 600 MG TABLET.ER (FP) PO PRN (11:56)
[2022-12-29] MEDS ORDERED: cloNIDine HCL 0.1 MG TABLET PO PRN (11:56)
[2022-12-29] MEDS ORDERED: BENZONATATE 200 MG CAPSULE PO PRN (11:56)
[2022-12-29] MEDS ORDERED: MAG HYDROX/AL HYDROX/SIMETH 30 ML UNIT-DOSE CUP PO PRN (11:56)
[2022-12-29] MEDS ORDERED: NALOXONE HCL 0.4 MG/ML VIAL IM PRN (11:56)
[2022-12-29] MEDS ORDERED: NALOXONE HCL (KLOXXADO) 8 MG SPRAY NS PRN (11:56)
[2022-12-29] MEDS ORDERED: IBUPROFEN 600 MG TABLET (FP) PO PRN (11:56)
[2022-12-29] MEDS ORDERED: POLYETHYLENE GLYCOL (HEALTHYLAX) 3350 17 GM PACKET PO PRN (11:56)
[2022-12-29] MEDS ORDERED: BENZOCAINE/MENTHOL (CHLORASEPTIC ) LOZENGE MM PRN (11:56)
[2022-12-29] MEDS ORDERED: methaDONE HCL 10 MG TABLET (FOR DETOX USE ONLY) PO ONE (11:56)
[2022-12-29] MEDS ORDERED: IBUPROFEN 400 MG TABLET (FP) PO PRN (11:56)
[2022-12-29] MEDS ORDERED: MAGNESIUM HYDROX 2400MG/30ML ORAL SUSPENSION 30 ML CUP PO PRN (11:56)
[2022-12-29] MEDS: PRENATAL VITAMINS W/ FOLIC ACID TABLET (FP) PO SCH (12:20)
[2022-12-29] MEDS: diazePAM 5 MG TABLET PO SCH ×2 (17:52→22:30)
[2022-12-29] MEDS: THIAMINE HCL 100 MG TABLET (FP) PO SCH (22:30)
[2022-12-29] MEDS: MELATONIN 5 MG TABLETS PO SCH (22:31)
[2022-12-30] MEDS: diazePAM 5 MG TABLET PO SCH ×4 (05:45→22:20)
[2022-12-30] MEDS: PRENATAL VITAMINS W/ FOLIC ACID TABLET (FP) PO SCH (10:55)
[2022-12-30 11:27] LABS: HEMATOCRIT 36.7 % (35.4-49); HEMOGLOBIN 12.5 GM/dL (11.7-16.9); MCH 29.4 pg (25.7-33.7); MEAN CELL VOLUME 86.7 fl (80-96); MEAN PLT VOLUME 8.5 fl (7.5-11.1); PLATELET COUNT 333 10^3/uL (134-434); RBC 4.23 M/mm3 (4.00-5.60); RDW 15.6 % (11.9-15.9); WHITE BLOOD COUNT 8.1 K/mm3 (4.0-10.0)
[2022-12-30 11:30] LABS: CALCIUM 8.7 mg/dL (8.5-10.1)
[2022-12-30 11:32] LABS: BLOOD UREA NITROGEN 6.1 mg/dL (7-18)
[2022-12-30 11:35] LABS: CREATININE 0.6 mg/dL (0.55-1.3)
[2022-12-30 11:36] LABS: BILIRUBIN,TOTAL 0.2 mg/dL (0.2-1)
[2022-12-30] MEDS: ONDANSETRON *ODT* 4 MG TABLET SL PRN (22:20)
[2022-12-30] MEDS: LOPERAMIDE HCL 2 MG CAPSULE PO PRN (22:20)
[2022-12-30] MEDS: MELATONIN 5 MG TABLETS PO SCH (22:22)
[2022-12-30] MEDS: THIAMINE HCL 100 MG TABLET (FP) PO SCH (22:22)
[2022-12-31] MEDS: diazePAM 5 MG TABLET PO SCH ×3 (05:36→22:09)
[2022-12-31] MEDS ORDERED: methaDONE HCL 10 MG TABLET (FOR DETOX USE ONLY) PO ONE (10:00)
[2022-12-31] MEDS: METHOCARBAMOL 500 MG TABLET PO PRN (10:32)
[2022-12-31] MEDS: PRENATAL VITAMINS W/ FOLIC ACID TABLET (FP) PO SCH (10:32)
[2022-12-31] MEDS: hydrOXYzine PAMOATE 25 MG CAPSULE (FP) PO PRN (10:32)
[2022-12-31] MEDS: diazePAM 5 MG TABLET PO PRN (10:34)
[2022-12-31] MEDS: SERTRALINE HCL 50 MG TABLET (FP) PO SCH (15:48)
[2022-12-31] MEDS: MELATONIN 5 MG TABLETS PO SCH (22:09)
[2022-12-31] MEDS: traZODone HCL 50 MG TABLET (FP) PO SCH (22:09)
[2022-12-31] MEDS: THIAMINE HCL 100 MG TABLET (FP) PO SCH (22:09)
[2022-12-31] MEDS: risperiDONE 2 MG TABLET PO SCH (22:09)
[2023-01-01] MEDS: diazePAM 5 MG TABLET PO SCH ×2 (06:01→17:35)
[2023-01-01] MEDS: ONDANSETRON *ODT* 4 MG TABLET SL PRN (06:01)
[2023-01-01] MEDS ORDERED: TRIMETHOBENZAMIDE HCL 200MG/2ML INJ IM PRN (07:56)
[2023-01-01] MEDS: METHOCARBAMOL 500 MG TABLET PO PRN ×3 (09:05→22:24)
[2023-01-01] MEDS: DICYCLOMINE HCL 10 MG CAPSULE PO PRN ×2 (09:05→14:05)
[2023-01-01] MEDS: PRENATAL VITAMINS W/ FOLIC ACID TABLET (FP) PO SCH (10:21)
[2023-01-01] MEDS: SERTRALINE HCL 50 MG TABLET (FP) PO SCH (10:21)
[2023-01-01] MEDS: diazePAM 5 MG TABLET PO PRN (10:22)
[2023-01-01] MEDS: BISMUTH SUBSALICYLATE 524 MG/30 ML PO PRN ×2 (14:05→16:50)
[2023-01-01] MEDS: LOPERAMIDE HCL 2 MG CAPSULE PO PRN (17:34)
[2023-01-01] MEDS: hydrOXYzine PAMOATE 25 MG CAPSULE (FP) PO PRN (17:34)
[2023-01-01] MEDS: PANTOPRAZOLE 20 MG TABLET PO SCH (19:36)
[2023-01-01] MEDS: traZODone HCL 50 MG TABLET (FP) PO SCH (22:24)
[2023-01-01] MEDS: THIAMINE HCL 100 MG TABLET (FP) PO SCH (22:24)
[2023-01-01] MEDS: MELATONIN 5 MG TABLETS PO SCH (22:24)
[2023-01-01] MEDS: risperiDONE 2 MG TABLET PO SCH (22:24)
[2023-01-02] MEDS ORDERED: diazePAM 5 MG TABLET PO ONE (06:00)
[2023-01-02] MEDS ORDERED: methaDONE HCL 10 MG TABLET (FOR DETOX USE ONLY) PO ONE (10:00)
[2023-01-02] MEDS: SERTRALINE HCL 50 MG TABLET (FP) PO SCH (10:54)
[2023-01-02] MEDS: PANTOPRAZOLE 20 MG TABLET PO SCH (10:54)
[2023-01-02] MEDS: PRENATAL VITAMINS W/ FOLIC ACID TABLET (FP) PO SCH (10:54)
[2023-01-02] MEDS: hydrOXYzine PAMOATE 25 MG CAPSULE (FP) PO PRN (19:32)
[2023-01-02] MEDS: THIAMINE HCL 100 MG TABLET (FP) PO SCH (21:57)
[2023-01-02] MEDS: risperiDONE 2 MG TABLET PO SCH (21:57)
[2023-01-02] MEDS: traZODone HCL 50 MG TABLET (FP) PO SCH (21:57)
[2023-01-02] MEDS: MELATONIN 5 MG TABLETS PO SCH (21:58)
[2023-01-03 06:42] VITALS: RESP 18; TEMP 97.3
[2023-01-03] MEDS: PRENATAL VITAMINS W/ FOLIC ACID TABLET (FP) PO SCH (11:09)
[2023-01-03] MEDS: SERTRALINE HCL 50 MG TABLET (FP) PO SCH (11:09)
[2023-01-03] MEDS: PANTOPRAZOLE 20 MG TABLET PO SCH (11:09)
[2023-01-03 23:30] VITALS: BP 115/84; PULSE 74
[2023-01-04] MEDS: traZODone HCL 50 MG TABLET (FP) PO SCH (00:10)
[2023-01-04] MEDS: THIAMINE HCL 100 MG TABLET (FP) PO SCH (00:11)
[2023-01-04] MEDS: MELATONIN 5 MG TABLETS PO SCH (00:11)
[2023-01-04] MEDS: risperiDONE 2 MG TABLET PO SCH (00:11)
== END 2023-01-04 07:58 | disposition short-term general hospital (02) | DRG 773 ==
LOC: YASAS 09:49 → Y6N 11:47
PROVIDERS: ADMIT Allergy & Immunology; ATTEND Surgery
PROC: HZ2ZZZZ Detoxification Services for Substance Abuse Treatment (ICD-10-PCS; principal; 2022-12-29)
DX: F11.23 Opioid dependence with withdrawal (principal); F10.230 Alcohol dependence with withdrawal, uncomplicated; F14.20 Cocaine dependence, uncomplicated; F17.210 Nicotine dependence, cigarettes, uncomplicated; F20.9 Schizophrenia, unspecified; F19.282 Other psychoactive substance dependence with psychoactive substance-induced sleep disorder; F19.280 Other psychoactive substance dependence with psychoactive substance-induced anxiety disorder; F19.24 Other psychoactive substance dependence with psychoactive substance-induced mood disorder; F41.9 Anxiety disorder, unspecified; M54.50 Low back pain, unspecified; G89.29 Other chronic pain; R10.9 Unspecified abdominal pain; R11.2 Nausea with vomiting, unspecified; Z86.19 Personal history of other infectious and parasitic diseases
CPT/HCPCS: 36415; 80053; 85027; 86780; 87811; C9803-CS; Q0162; U0003; U0005

== ENCOUNTER 2023-01-03 10:32 | Observation (INO) | payer OTHER ==
[2023-01-03] MEDS ORDERED: ACETAMINOPHEN 1000 MG/100 ML BAG IVPB ONE (10:51)
[2023-01-03] MEDS ORDERED: LACTATED RINGERS SOLUTION 1000 ML INFUS.BAG IV ONE ×2 (10:51→13:51)
[2023-01-03] MEDS ORDERED: ACETAMINOPHEN INJECTION 100 ML IVPB ONE (11:00)
[2023-01-03] MEDS ORDERED: MAG HYDROX/AL HYDROX/SIMETH 30 ML UNIT-DOSE CUP PO ONE (11:46)
[2023-01-03] MEDS ORDERED: FAMOTIDINE 20 MG/50 ML IVPB 20 MG/50 ML MG IVPB ONE ×2 (11:46→11:59)
[2023-01-03] MEDS ORDERED: ONDANSETRON 4 MG/2 ML VIAL IVPB ONE (11:54)
[2023-01-03] MEDS ORDERED: MAG HYDROX/AL HYDROX/SIMETH 30 ML UNIT-DOSE CUP ONE (11:59)
[2023-01-03] MEDS ORDERED: ONDANSETRON 4 MG/2 ML VIAL ONE ×2 (11:59→14:46)
[2023-01-03 12:11] LABS: LACTIC ACID 2.4 mmol/L (0.4-2.0)
[2023-01-03 12:18] LABS: ALBUMIN 3.4 g/dl (3.4-5.0); BLOOD UREA NITROGEN 10.7 mg/dL (7-18)
[2023-01-03 12:19] LABS: CALCIUM 9.3 mg/dL (8.5-10.1)
[2023-01-03 12:21] LABS: CREATININE 0.6 mg/dL (0.55-1.3)
[2023-01-03 12:22] LABS: BILIRUBIN,TOTAL 0.3 mg/dL (0.2-1)
[2023-01-03 12:23] LABS: TOT PROT 7.8 g/dl (6.4-8.2)
[2023-01-03 12:47] LABS: BASO % 0.3 % (0-2.0); EOS % 0.3 % (0-4.5); HEMATOCRIT 38.8 % (35.4-49); HEMOGLOBIN 13.2 GM/dL (11.7-16.9); LYMPH % 18.9 % (8-40); MCH 29.7 pg (25.7-33.7); MCHC 33.9 g/dl (32.0-35.9); MEAN CELL VOLUME 87.5 fl (80-96); MEAN PLT VOLUME 8.6 fl (7.5-11.1); MONO % 4.9 % (3.8-10.2); NEUT % 75.6 % (42.8-82.8); PLATELET COUNT 354 10^3/uL (134-434); RBC 4.43 M/mm3 (4.00-5.60); RDW 15.7 % (11.9-15.9); WHITE BLOOD COUNT 7.5 K/mm3 (4.0-10.0)
[2023-01-03 13:17] LABS: LACTIC ACID 2.8 mmol/L (0.4-2.0)
[2023-01-03] MEDS ORDERED: ONDANSETRON 4 MG/2 ML VIAL IVPUSH ONE (14:31)
[2023-01-03] MEDS ORDERED: PANTOPRAZOLE SODIUM 40 MG VIAL IVPUSH ONE (15:02)
[2023-01-03] MEDS ORDERED: PANTOPRAZOLE SODIUM 40 MG/100 ML BAG IVPB ONE (15:08)
[2023-01-03 18:14] LABS: URINE APPEARANCE CLEAR; URINE BILIRUBIN NEGATIVE (NEGATIVE); URINE COLOR YELLOW; URINE GLUCOSE (UA) NEGATIVE (NEGATIVE); URINE KETONE NEGATIVE (NEGATIVE); URINE LEUK ESTERASE NEGATIVE (NEGATIVE); URINE NITRITE NEGATIVE (NEGATIVE); URINE PROTEIN NEGATIVE (NEGATIVE)
[2023-01-03 18:18] LABS: LACTIC ACID 2.2 mmol/L (0.4-2.0)
[2023-01-03] MEDS ORDERED: SODIUM CHLORIDE 1,000 ML IV STA (20:15)
[2023-01-03] MEDS ORDERED: SODIUM CHLORIDE 1,000 ML IV SCH (20:15)
[2023-01-04 00:44] VITALS: BMI 25.2
[2023-01-04 04:36] VITALS: RESP 18
[2023-01-04] MEDS: GABAPENTIN 300 MG CAPSULE PO SCH ×2 (06:19→13:23)
[2023-01-04] MEDS ORDERED: LACTATED RINGERS SOLUTION 1000 ML INFUS.BAG IV SCH (08:00)
[2023-01-04] MEDS ORDERED: methaDONE HCL 10 MG TABLET PO ONE (08:30)
[2023-01-04 08:51] LABS: BASO % 0.4 % (0-2.0); EOS % 0.4 % (0-4.5); HEMATOCRIT 42.1 % (35.4-49); HEMOGLOBIN 14.1 GM/dL (11.7-16.9); LYMPH % 38.2 % (8-40); MCH 29.3 pg (25.7-33.7); MCHC 33.5 g/dl (32.0-35.9); MEAN CELL VOLUME 87.4 fl (80-96); MEAN PLT VOLUME 7.9 fl (7.5-11.1); MONO % 7.7 % (3.8-10.2); NEUT % 53.3 % (42.8-82.8); PLATELET COUNT 381 10^3/uL (134-434); RBC 4.82 M/mm3 (4.00-5.60); RDW 15.5 % (11.9-15.9); WHITE BLOOD COUNT 9.7 K/mm3 (4.0-10.0)
[2023-01-04 09:03] LABS: CALCIUM 9.4 mg/dL (8.5-10.1)
[2023-01-04 09:04] LABS: BLOOD UREA NITROGEN 7.4 mg/dL (7-18)
[2023-01-04 09:07] LABS: CREATININE 0.5 mg/dL (0.55-1.3)
[2023-01-04] MEDS ORDERED: risperiDONE 2 MG TABLET PO SCH (10:00)
[2023-01-04] MEDS ORDERED: SERTRALINE HCL 50 MG TABLET (FP) PO SCH (10:00)
[2023-01-04] MEDS ORDERED: LACTATED RINGERS SOLUTION 1,000 ML/1,000 ML INFUS.BAG IV SCH (10:45)
[2023-01-04 14:20] VITALS: BP 116/72; PULSE 87; TEMP 98.2
[2023-01-04] MEDS ORDERED: traZODone HCL 50 MG TABLET (FP) PO SCH (22:00)
== END 2023-01-04 16:15 | disposition home or self-care (01) ==
LOC: JER 10:32 → JERBED 18:34 → J6S 22:50
PROVIDERS: ADMIT Internal Medicine; ATTEND Internal Medicine
PROC: 3E033NZ Introduction of Analgesics, Hypnotics, Sedatives into Peripheral Vein, Percutaneous Approach (ICD-10-PCS; principal; 2023-01-03)
PROC: 3E033NZ Introduction of Analgesics, Hypnotics, Sedatives into Peripheral Vein, Percutaneous Approach (ICD-10-PCS; 2023-01-03)
PROC: 3E033GC Introduction of Other Therapeutic Substance into Peripheral Vein, Percutaneous Approach (ICD-10-PCS; 2023-01-03)
PROC: 3E0337Z Introduction of Electrolytic and Water Balance Substance into Peripheral Vein, Percutaneous Approach (ICD-10-PCS; 2023-01-03)
DX: R10.30 Lower abdominal pain, unspecified (principal); R11.2 Nausea with vomiting, unspecified; F15.90 Other stimulant use, unspecified, uncomplicated; F10.99 Alcohol use, unspecified with unspecified alcohol-induced disorder; F17.210 Nicotine dependence, cigarettes, uncomplicated
CPT/HCPCS: 0241U-QW; 36415; 73630-TC-RT-FY; 74177-TC; 80048; 80053; 81003; 83036; 83605; 83690; 84132; 84484; 85025; 93005; 93010; 96361; 96365; 96375; 96376; 99285-25; C1887; G0378; Q9967